=== PATIENT | male | born 1955 | race Caucasian/White ===

== ENCOUNTER 2016-08-28 14:34 | Inpatient (IN) | payer OTHER ==
[~2016-08-28] VITALS: Ht 190.5 cm; Wt 121.3 kg
[2016-08-28] MEDS ORDERED: SODIUM CHLORIDE 0.9% 1000ML 1,000 ML IV SCH (14:39)
--- NOTE | 2016-08-28 14:39 | EMERGENCY ROOM VISIT NOTE ---
History Report prepared by Fernie: Emma Mendoza Under the Supervision of: Dr. Feliz Patrick D.O. First contact with patient: 14:34 Stated Complaint: STROKE SYMPTOMS History of Present Illness The patient is a 60 year old male who presents to the Emergency Room with complaints of constant stroke like symptoms beginning just prior to arrival. The patient fell out of his truck today and has injuries from the fall. He felt lightheaded at the time of the fall. He notes back pain, right hip pain and right arm pain. The patient has lacerations to the forehead and right arm. When EMS arrived he was at baseline. The patient had a stroke in 2007 and since has experienced right sided weakness and right facial droop. After EMS was with the patient caring for his injuries, he began to experience confusion and trouble understanding what EMS was saying to him. He did have 2 alcoholic beverages today. Source of History: patient Onset: just [employer] Position: other (global) Quality: other (stroke symptoms) Timing: constant Associated Symptoms: + back pain Note: The patient is experiencing right arm pain and confusion. Review of Systems See HPI for pertinent positives & negatives. A total of 10 systems reviewed and were otherwise negative. 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 (17) Seizure disorder (18) Spinal stenosis, lumbar (19) Stroke Surgical Problems: (1) History of lumbar surgery (2) S/P cholecystectomy (3) S/P hernia repair (4) S/P IVC filter (5) S/P patent foramen ovale closure Social History Alcohol Use: occasionally Drug Use: none Marital Status: Housing Status: lives with family Current/Historical Medications Scheduled Citalopram (Citalopram Hydrobromide), 30 MG PO DAILY Clonazepam (Klonopin), 0.5 MG PO HS Clopidogrel (Plavix), 75 MG PO DAILY Cyanocobalamin (Vitamin B-12), 1,000 MCG PO DAILY Divalproex Sodium (Depakote), 500 MG PO BID Levothyroxine Sodium (Levothyroxine Sodium), 25 MCG PO QAM Simvastatin (Zocor), 10 MG PO HS Thiamine Hcl (Vitamin B-1), 100 MG PO DAILY Trazodone Hcl (Trazodone), 100 MG PO HS Scheduled PRN Hydrocodone-Acetaminophen (Lortab 5-325 mg), 1 TAB PO Q6 PRN for Pain Allergies Coded Allergies: BEE STING (Unverified Allergy, Unknown, UNKNOWN, 08/28/16) Lisinopril (Unverified Allergy, Unknown, UNKNOWN, 08/28/16) Morphine (Unverified Allergy, Unknown, SHORTNESS OF BREATH, 08/28/16) Nortriptyline (Unverified Allergy, Unknown, UNKNOWN, 08/28/16) Physical Exam Vital Signs Date Time Temp Pulse Resp B/P Pulse Ox O2 Delivery O2 Flow Rate FiO2 08/28/16 17:32 68 16 145/78 97 Room Air 08/28/16 17:29 71 16 08/28/16 17:17 140/72 08/28/16 17:15 70 16 140/72 97 Room Air 08/28/16 16:01 126/73 08/28/16 16:00 72 16 126/73 97 08/28/16 15:59 71 19 94 08/28/16 15:59 92 Nasal Cannula 3.0 08/28/16 15:50 72 17 138/79 96 08/28/16 15:49 138/79 08/28/16 15:24 74 23 95 08/28/16 15:22 96 Room Air 08/28/16 15:19 76 14 96 08/28/16 15:18 77 08/28/16 15:11 174/98 08/28/16 14:36 83 20 180/94 98 Room Air Physical Exam GENERAL: Patient is awake, alert, slow to answer questions. Patient appears to be uncomfortable and in pain. EYES: The conjunctivae are clear. The pupils are round and reactive. EARS, NOSE, MOUTH AND THROAT: The nose is without any evidence of any deformity. Mucous membranes are moist tongue is midline NECK: The neck is nontender and supple. RESPIRATORY: Normal respiratory effort is noted there is no evidence of wheezing rhonchi or rales CARDIOVASCULAR: Regular rate and rhythm noted there no murmurs rubs or gallops normal S1 normal S2 GASTROINTESTINAL: The abdomen is soft. Bowel sounds are present in all quadrants. Abdomen is nontender BACK: Abrasion to left lower back. Pain with palpation over lumbar spine. MUSCULOSKELETAL/EXTREMITIES: Shortening of right lower extremity. Pain with range of motion of right hip. No deformity noted. SKIN: Abrasion to right forearm and forehead, no active bleeding. Pitting edema bilaterally. NEUROLOGIC: Patient is awake alert and oriented to person, place and situation. 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 Unable to lift right leg off bed. Medical Decision & Procedures ER Provider Diagnostic Interpretation: Radiology results as stated below per my review and radiologist interpretation: RIGHT SHOULDER 2 VIEWS CLINICAL HISTORY: Fall with right shoulder pain. FINDINGS: 2 views of the right shoulder are obtained. No prior studies are available for comparison at the time of dictation. The examination is degraded by suboptimal positioning. The skeletal structures are osteopenic. No fracture or dislocation is seen. The glenohumeral articulation appears maintained. Mild productive change is noted at the acromioclavicular articulation. The overlying soft tissues are within normal limits. Imaged right upper lobe lung parenchyma is clear. IMPRESSION: No fracture or dislocation is seen. Electronically signed by: Timothy Onofre M.D. 08/28/2016 4:03 PM Dictated Date/Time: 08/28/2016 3:[address] DOSE: 724.80 mGycm HISTORY: Trauma fall TECHNIQUE: Multiaxial CT images of the lumbar spine were performed and reformatted in the sagittal and coronal plane without the use of contrast. COMPARISON: None. FINDINGS: Findings consistent with laminectomy and fusion at the L4-L5 and S1 levels. Vertebral body stature is normal. No evidence for an acute compression deformity. Transaxial images show the posterior arch to be intact at all levels. IMPRESSION: Postoperative changes of the low lumbar spine. No acute process. Electronically signed by: Balaji Thomas M.D. 08/28/2016 3:13 PM Dictated Date/Time: 08/28/2016 3:10 PM RIGHT PELVIS/UNILATERAL HIP 2-3VIEWS CLINICAL HISTORY: fall Right trauma. Pain. COMPARISON: None. DISCUSSION: Moderate degenerative change of both hips. Postoperative changes low lumbar spine. No evidence for acute bony abnormality. No evidence for acetabular protrusion. There is no evidence for soft tissue swelling. IMPRESSION: No acute process. Electronically signed by: Balaji Thomas M.D. 08/28/2016 3:56 PM Dictated Date/Time: 08/28/2016 3:[address] SCAN OF THE BRAIN WITHOUT IV CONTRAST CLINICAL HISTORY: Fall. Stroke like symptoms. COMPARISON STUDY: No priors. TECHNIQUE: Unenhanced axial CT scan of the brain is performed from the vertex to the skull base. CT DOSE: 729.78 mGycm FINDINGS: Brain parenchyma: There is left MCA territory encephalomalacia consistent with a remote infarct. There is associated ex vacuo dilatation of the lateral ventricle. Wallerian degeneration is noted within the left aspect of the lizeth. There are age-related involutional changes noting mild subcortical and periventricular microangiopathic change. There is no hemorrhage, mass effect, or evidence of acute territorial ischemia by CT criteria. Black-white matter is preserved. No extra-axial fluid collection is seen. Ventricles, sulci, cisterns: Prominent secondary to involutional change. Intracranial vasculature: There is atherosclerotic calcification of the cavernous carotid arteries. Calvarium: There is no depressed calvarial fracture. Sinuses and mastoids: The visualized paranasal sinuses are clear. The mastoid air cells are well pneumatized. Orbits: The bony orbits are grossly intact. IMPRESSION: There is no hemorrhage, mass effect, or evidence of acute territorial ischemia by CT criteria noting evidence of remote left MCA territory infarct. Electronically signed by: Timothy Onofre M.D. 08/28/2016 3:11 PM Dictated Date/Time: 08/28/2016 3:08 PM CHEST ONE VIEW PORTABLE CLINICAL HISTORY: Stroke mental status change COMPARISON STUDY: No previous studies for comparison. FINDINGS: The bones soft tissues and hemidiaphragms are normal. The cardiomediastinal silhouette is normal. The lungs are clear. The pulmonary vasculature is normal. IMPRESSION: Negative chest. Electronically signed by: Balaji Thomas M.D. 08/28/2016 3:47 PM Dictated Date/Time: 08/28/2016 3:[address] SCAN OF THE CERVICAL SPINE CLINICAL HISTORY: Fall. Neck pain. COMPARISON STUDY: No priors. TECHNIQUE: CT scan of the cervical spine is performed from the skull base to the upper thoracic spine. Images are reviewed in the axial, sagittal, and coronal planes. IV contrast was not administered for this examination. CT DOSE: 501.88 mGycm FINDINGS: Skeletal structures: The skeletal structures are well mineralized. There is no evidence of fracture or subluxation involving the cervical spine. Vertebral body height and alignment are maintained. There is straightening of the cervical lordosis. The odontoid process and lateral masses are intact. The atlantoaxial articulation is preserved. The spinous processes appear intact. Small anterior osteophytes are seen from C5-C7. Intervertebral discs: There is moderate degenerative disc space narrowing at C5-C6. The remaining disc spaces are well maintained. Central canal: A posterior disc osteophyte complex at C5-C6 likely contributes to acquired compromise of the central canal. Soft tissues: The prevertebral and paraspinous soft tissues are within normal limits. Calvarium: The visualized calvarium at the skull base appears intact. Brain parenchyma: Partially visualized brain parenchyma the skull base is within normal limits. Sinuses and mastoids: Trace mucosal thickening/fluid is seen within the maxillary antra. The mastoid air cells are well pneumatized. Lung apices: Clear as visualized. IMPRESSION: There is no evidence of fracture or subluxation involving the cervical spine. Electronically signed by: Timothy Onofre M.D. 08/28/2016 3:19 PM Dictated Date/Time: 08/28/2016 3:11 PM RIGHT HUMERUS MIN 2 VIEWS ROUTINE CLINICAL HISTORY: fall Right trauma. Pain. COMPARISON: None. DISCUSSION: Degenerative change right shoulder and right elbow. No well-defined acute bony abnormality of the humerus. Cortical margins are intact. There is no evidence for soft tissue swelling. IMPRESSION: Degenerative change. No acute bony abnormality. Electronically signed by: Balaji Thomas M.D. 08/28/2016 4:54 PM Dictated Date/Time: 08/28/2016 4:54 PM RIGHT FEMUR 2 VIEWS ROUTINE CLINICAL HISTORY: fall Right COMPARISON: None. DISCUSSION: Moderate degenerative change right hip. No evidence for acetabular protrusion. No acute bony abnormality. There is no evidence for soft tissue swelling. IMPRESSION: Degenerative change. No acute bony abnormality. Electronically signed by: Balaji Thomas M.D. 08/28/2016 4:53 PM Dictated Date/Time: 08/28/2016 4:50 PM RIGHT FOREARM 2 VIEWS ROUTINE CLINICAL HISTORY: fall Right trauma. Pain. COMPARISON: None. DISCUSSION: Intermittent subluxation of the radial ulnar articulation. The elbow show degenerative change. No additional acute bony abnormalities identified. There is no evidence for soft tissue swelling. IMPRESSION: Intermittent r positional subluxation of the radial ulnar articulation. Electronically signed by: Balaji Thomas M.D. 08/28/2016 4:49 PM Dictated Date/Time: 08/28/2016 4:44 PM Laboratory Results Test 08/28/16 14:40 08/28/16 14:45 08/28/16 14:51 08/28/16 15:14 Bedside Prothrombin Time INR 1.1 (0.9-1.1) Bedside Glucose 106 mg/dl (70-99) Red Blood Cell Morphology Unremarkable Estimated Average Glucose 94 mg/dl Hemoglobin A1c 4.9 % (4.5-5.6) Total Creatine Kinase 113 U/L (39-308) Creatine Kinase MB 1.2 ng/ml (0.5-3.6) Creatine Kinase MB Ratio 1.1 (0-3.0) Troponin I < 0.015 ng/ml (0-0.045) Bedside Hemoglobin 16.3 g/dl (14.0-18.0) Bedside Hematocrit 48 % (42-52) Bedside Sodium 138 mEq/L (135-144) Bedside Potassium 4.5 mEq/L (3.3-5.0) Bedside Chloride 97 mEq/L (101-112) Bedside Total CO2 26 mEq/l (24-31) Bedside Blood Urea Nitrogen 5 mg/dl (7-18) Bedside Creatinine 0.9 mg/dl (0.6-1.3) Bedside Glucose (other) 102 mg/dl (70-99) Bedside Ionized Calcium (Herb) 1.11 mmol/l (1.12-1.32) Urine Color YELLOW Urine Appearance CLEAR (CLEAR) Urine pH 6.5 (4.5-7.5) Urine Specific [place] 1.008 (1.000-1.030) Urine Protein NEG (NEG) Urine Glucose (UA) NEG (NEG) Urine Ketones NEG (NEG) Urine Occult Blood TRACE (NEG) Urine Nitrite NEG (NEG) Urine Bilirubin NEG (NEG) Urine Urobilinogen NEG (NEG) Urine Leukocyte Esterase NEG (NEG) Urine WBC (Auto) 0 /hpf (0-5) Urine RBC (Auto) 0-4 /hpf (0-4) Urine Hyaline Casts (Auto) 1-5 /lpf (0-5) Urine Epithelial Cells (Auto) 0-5 /lpf (0-5) Urine Bacteria (Auto) NEG (NEG) Urine Opiates Screen NEG (NEG) Urine Methadone, Qualitative NEG (NEG) Urine Barbiturates NEG (NEG) Urine Phencyclidine (PCP) Level NEG (NEG) Ur Amphetamine/Methamphetamine NEG (NEG) MDMA (Ecstasy) Screen NEG (NEG) Urine Benzodiazepines Screen NEG (NEG) Urine Cocaine Metabolite NEG (NEG) Urine Marijuana (THC) NEG (NEG) Test 08/28/16 15:15 Prothrombin Time 10.8 SECONDS (9.0-12.0) Prothromb Time International Ratio 1.0 (0.9-1.1) Activated Partial Thromboplast Time 26.1 SECONDS (21.0-31.0) Partial Thromboplastin Ratio 1.0 Ethyl Alcohol mg/dL < 3.0 mg/dl (0-3) Laboratory results per my review. Medications Administered Medications (Trade) Dose Ordered Sig/Liss Route Start Time Stop Time Status Last Admin Dose Admin Sodium Chloride (Nss 1000ml) 1,000 ml @ 50 mls/hr Q20H IV 08/28/16 14:39 08/28/16 20:57 DC 08/28/16 15:27 50 MLS/HR Ondansetron HCl (Zofran Inj) 4 mg NOW STAT IV 08/28/16 15:13 08/28/16 15:14 DC 08/28/16 15:28 4 MG Fentanyl Citrate 100 mcg 100 mcg Q15M PRN IV 08/28/16 15:15 08/28/16 20:57 DC 08/28/16 19:35 100 MCG Sodium Chloride (Nss 1000ml) 1,000 ml @ 100 mls/hr Q10H IV 08/28/16 18:26 09/27/16 18:25 08/29/16 04:20 100 MLS/HR ECG Indication: other (stroke symptoms) Rate (beats per minute): 79 Rhythm: normal sinus Findings: nonspecific-ST abn (none), no ectopy Comparison ECG Date: no prior available ED Course 1434: The patient was evaluated in room B1. A complete history and physical examination were performed. 1439: Sodium Chloride 1,000 ml @ 50 mls/hr IV. 1511: I checked on the patient. He is still in pain and is requesting pain medication. 1513: Zofran Inj 4 mg IV, Fentanyl Inj 100 mcg IV. 1550: F 15. 1555: I spoke with the patient's [id number]. He states that the patient is now at baseline. 1625: [id number] once again states that the patient is at his baseline. 1630: I discussed the patient's case with Dr. Angelo Cee. The patient will be evaluated for further management. 1645: Upon reevaluation, the patient is hemodynamically stable. I discussed results and treatment plan with him. He verbalizes agreement and understanding. I spoke with Dr. Stephens of the [facility]. The patient will be evaluated for further management and care. Medical Decision Differential diagnosis: Etiologies such as fracture, dislocation, intra-abdominal, pneumothorax, intrathoracic , intracranial, neurologic, as well as other traumatic pathologies were entertained. Nursing notes reviewed. Additional history is obtained from the patient's family member. Additional history is obtained from prehospital personnel. The patient is a 60-year-old male who presented to the emergency department for an evaluation after a fall. The patient was with his [id number] when he fell from his [id number]'s vehicle. The patient was transported to our facility via [employer]. We were called by the [employer] company because the patient's mental status started to decrease and he started to have symptoms of what was felt to be a stroke. The patient does have a a history of an MCA infarct which left him with right upper and right lower extremity weakness in the past. The patient was put directly to room B 1. Most of his complaints appear to be consistent with the fall including right shoulder right hip and low back pain. On physical exam the patient had right-sided weakness as well as a slight right facial droop. The patient was reevaluated multiple times. The patient's family member feels that he is at his normal mental status and baseline neurologic exam at this time. I do not feel the patient is a candidate for TPA because of the rapidly improving symptoms as well as a history of recent trauma. The patient was treated with IV fluids IV pain medicine and IV antiemetics in the emergency department. He continued to have significant pain in the shoulder although radiographic studies did not show any definite bony injury. I discussed this case with the on-call [facility] hospitalist group. They've agreed to evaluate the patient in the emergency department for further management and disposition. Consults Time Called: 1628 Consulting Physician: Dr. Angelo Cee Returned Call: 1630 I discussed the patient's case with Dr. Angelo Cee. The patient will be evaluated for further management. Impression Primary Impression: TIA (transient ischemic attack) Additional Impressions: Fall Altered mental status Shoulder contusion Contusion, hip Lumbar contusion Scribe Attestation The scribe's documentation has been prepared under my direction and personally reviewed by me in its entirety. I confirm that the note above accurately reflects all work, treatment, procedures, and medical decision making performed by me. Departure Information Dispostion Being Evaluated By Hospitalist Problem Qualifiers Primary Impression: TIA (transient ischemic attack) Transient cerebral ischemia type: unspecified Qualified Codes: G45.9 - Transient cerebral ischemic attack, unspecified Additional Impressions: Fall Encounter type: initial encounter Qualified Codes: W19.XXXA - Unspecified fall, initial encounter Altered mental status Altered mental status type: unspecified Qualified Codes: R41.82 - Altered mental status, unspecified Shoulder contusion Encounter type: initial encounter Laterality: right Qualified Codes: S40.011A - Contusion of right shoulder, initial encounter Contusion, hip Encounter type: initial encounter Laterality: right Qualified Codes: S70.01XA - Contusion of right hip, initial encounter Lumbar contusion Encounter type: initial encounter Qualified Codes: S30.0XXA - Contusion of lower back and pelvis, initial encounter
[2016-08-28 15:05] LABS: ISTAT CREATININE 0.9 mg/dl (0.6-1.3); ISTAT HEMOGLOBIN 16.3 g/dl (14.0-18.0); ISTAT IONIZED CALCIUM 1.11 mmol/l (1.12-1.32)
--- NOTE | 2016-08-28 15:12 | DIAGNOSTIC IMAGING REPORT ---
CT SCAN OF THE BRAIN WITHOUT IV CONTRAST CLINICAL HISTORY: Fall. Stroke like symptoms. COMPARISON STUDY: No priors. TECHNIQUE: Unenhanced axial CT scan of the brain is performed from the vertex to the skull base. CT DOSE: 729.78 mGycm FINDINGS: Brain parenchyma: There is left MCA territory encephalomalacia consistent with a remote infarct. There is associated ex vacuo dilatation of the lateral ventricle. Wallerian degeneration is noted within the left aspect of the lizeth. There are age-related involutional changes noting mild subcortical and periventricular microangiopathic change. There is no hemorrhage, mass effect, or evidence of acute territorial ischemia by CT criteria. Black-white matter is preserved. No extra-axial fluid collection is seen. Ventricles, sulci, cisterns: Prominent secondary to involutional change. Intracranial vasculature: There is atherosclerotic calcification of the cavernous carotid arteries. Calvarium: There is no depressed calvarial fracture. Sinuses and mastoids: The visualized paranasal sinuses are clear. The mastoid air cells are well pneumatized. Orbits: The bony orbits are grossly intact. IMPRESSION: There is no hemorrhage, mass effect, or evidence of acute territorial ischemia by CT criteria noting evidence of remote left MCA territory infarct. Electronically signed by: Timothy Onofre M.D. 08/28/2016 3:11 PM Dictated Date/Time: 08/28/2016 3:08 PM
[2016-08-28] MEDS ORDERED: ONDANSETRON INJ 2 MG/ML 2 ML VIAL IV STA (15:13)
--- NOTE | 2016-08-28 15:15 | DIAGNOSTIC IMAGING REPORT ---
LUMBAR SPINE CT CT DOSE: 724.80 mGycm HISTORY: Trauma fall TECHNIQUE: Multiaxial CT images of the lumbar spine were performed and reformatted in the sagittal and coronal plane without the use of contrast. COMPARISON: None. FINDINGS: Findings consistent with laminectomy and fusion at the L4-L5 and S1 levels. Vertebral body stature is normal. No evidence for an acute compression deformity. Transaxial images show the posterior arch to be intact at all levels. IMPRESSION: Postoperative changes of the low lumbar spine. No acute process. Electronically signed by: Balaji Thomas M.D. 08/28/2016 3:13 PM Dictated Date/Time: 08/28/2016 3:10 PM
--- NOTE | 2016-08-28 15:20 | DIAGNOSTIC IMAGING REPORT ---
CT SCAN OF THE CERVICAL SPINE CLINICAL HISTORY: Fall. Neck pain. COMPARISON STUDY: No priors. TECHNIQUE: CT scan of the cervical spine is performed from the skull base to the upper thoracic spine. Images are reviewed in the axial, sagittal, and coronal planes. IV contrast was not administered for this examination. CT DOSE: 501.88 mGycm FINDINGS: Skeletal structures: The skeletal structures are well mineralized. There is no evidence of fracture or subluxation involving the cervical spine. Vertebral body height and alignment are maintained. There is straightening of the cervical lordosis. The odontoid process and lateral masses are intact. The atlantoaxial articulation is preserved. The spinous processes appear intact. Small anterior osteophytes are seen from C5-C7. Intervertebral discs: There is moderate degenerative disc space narrowing at C5-C6. The remaining disc spaces are well maintained. Central canal: A posterior disc osteophyte complex at C5-C6 likely contributes to acquired compromise of the central canal. Soft tissues: The prevertebral and paraspinous soft tissues are within normal limits. Calvarium: The visualized calvarium at the skull base appears intact. Brain parenchyma: Partially visualized brain parenchyma the skull base is within normal limits. Sinuses and mastoids: Trace mucosal thickening/fluid is seen within the maxillary antra. The mastoid air cells are well pneumatized. Lung apices: Clear as visualized. IMPRESSION: There is no evidence of fracture or subluxation involving the cervical spine. Electronically signed by: Timothy Onofre M.D. 08/28/2016 3:19 PM Dictated Date/Time: 08/28/2016 3:11 PM
[2016-08-28 15:26] LABS: BLOOD UREA NITROGEN 5 mg/dl (7-18); BUN/CREATININE RATIO 5.4 (10-20); CALCIUM 8.3 mg/dl (8.5-10.1); CARBON DIOXIDE 30 mmol/L (21-32); CHLORIDE 104 mmol/L (98-107); GLUCOSE 99 mg/dl (70-99); POTASSIUM 4.3 mmol/L (3.5-5.1); SODIUM 139 mmol/L (136-145)
[2016-08-28] MEDS: FENTANYL CITRATE INJ 50 MCG/1 ML 2 ML VIAL IV PRN ×3 (15:27→19:35)
[2016-08-28 15:31] LABS: CKMB/CK RATIO 1.1 (0-3.0)
[2016-08-28 15:36] LABS: URINE APPEARANCE CLEAR (CLEAR); URINE BILIRUBIN NEG (NEG); URINE COLOR YELLOW; URINE EPITHELIAL CELL AUTO 0-5 /lpf (0-5); URINE NITRITE NEG (NEG); URINE PH 6.5 (4.5-7.5); URINE SPECIFIC GRAVITY 1.008 (1.000-1.030); UROBILINOGEN NEG (NEG); ZZUR CULT IF INDIC CLEAN CATCH NO
[2016-08-28 15:38] LABS: MANUAL MICROSCOPIC REQUIRED? NO; REVIEW REQ? NO
[2016-08-28 15:43] LABS: HEMATOCRIT 47.5 % (42-52); MEAN CORPUSCULAR HEMOGLOBIN 34.3 pg (25-34); MEAN CORPUSCULAR HGB CONC 35.8 g/dl (32-36); RED BLOOD COUNT 4.95 M/uL (4.7-6.1); WHITE BLOOD COUNT 8.16 K/uL (4.8-10.8)
--- NOTE | 2016-08-28 15:49 | DIAGNOSTIC IMAGING REPORT ---
CHEST ONE VIEW PORTABLE CLINICAL HISTORY: Stroke mental status change COMPARISON STUDY: No previous studies for comparison. FINDINGS: The bones soft tissues and hemidiaphragms are normal. The cardiomediastinal silhouette is normal. The lungs are clear. The pulmonary vasculature is normal. IMPRESSION: Negative chest. Electronically signed by: Balaji Thomas M.D. 08/28/2016 3:47 PM Dictated Date/Time: 08/28/2016 3:47 PM
[2016-08-28 15:50] LABS: PROTHROMBIN TIME (PATIENT) 10.8 SECONDS (9.0-12.0)
--- NOTE | 2016-08-28 15:57 | DIAGNOSTIC IMAGING REPORT ---
RIGHT PELVIS/UNILATERAL HIP 2-3VIEWS CLINICAL HISTORY: fall Right trauma. Pain. COMPARISON: None. DISCUSSION: Moderate degenerative change of both hips. Postoperative changes low lumbar spine. No evidence for acute bony abnormality. No evidence for acetabular protrusion. There is no evidence for soft tissue swelling. IMPRESSION: No acute process. Electronically signed by: Balaji Thomas M.D. 08/28/2016 3:56 PM Dictated Date/Time: 08/28/2016 3:55 PM
[2016-08-28 16:00] LABS: BENZODIAZEPINE, URINE NEG (NEG); COCAINE,URINE NEG (NEG); PHENCYCLIDINE, URINE NEG (NEG)
--- NOTE | 2016-08-28 16:04 | DIAGNOSTIC IMAGING REPORT ---
RIGHT SHOULDER 2 VIEWS CLINICAL HISTORY: Fall with right shoulder pain. FINDINGS: 2 views of the right shoulder are obtained. No prior studies are available for comparison at the time of dictation. The examination is degraded by suboptimal positioning. The skeletal structures are osteopenic. No fracture or dislocation is seen. The glenohumeral articulation appears maintained. Mild productive change is noted at the acromioclavicular articulation. The overlying soft tissues are within normal limits. Imaged right upper lobe lung parenchyma is clear. IMPRESSION: No fracture or dislocation is seen. Electronically signed by: Timothy Onofre M.D. 08/28/2016 4:03 PM Dictated Date/Time: 08/28/2016 3:57 PM
[2016-08-28 16:07] LABS: BASO % 0.4 %; BASO ABS # 0.03 K/uL (0-0.2); COMPLETE YES; EOS % 2.5 %; IG% 0.7 %; LYMPH ABS # 2.18 K/uL (1.2-3.4); MEAN PLATELET VOLUME 10.5 fL (7.4-10.4); MONO % 12.4 %; PLATELET COUNT 175 K/uL (130-400)
--- NOTE | 2016-08-28 16:51 | DIAGNOSTIC IMAGING REPORT ---
RIGHT FOREARM 2 VIEWS ROUTINE CLINICAL HISTORY: fall Right trauma. Pain. COMPARISON: None. DISCUSSION: Intermittent subluxation of the radial ulnar articulation. The elbow show degenerative change. No additional acute bony abnormalities identified. There is no evidence for soft tissue swelling. IMPRESSION: Intermittent r positional subluxation of the radial ulnar articulation. Electronically signed by: Balaji Thomas M.D. 08/28/2016 4:49 PM Dictated Date/Time: 08/28/2016 4:44 PM
--- NOTE | 2016-08-28 16:55 | DIAGNOSTIC IMAGING REPORT ---
RIGHT FEMUR 2 VIEWS ROUTINE CLINICAL HISTORY: fall Right COMPARISON: None. DISCUSSION: Moderate degenerative change right hip. No evidence for acetabular protrusion. No acute bony abnormality. There is no evidence for soft tissue swelling. IMPRESSION: Degenerative change. No acute bony abnormality. Electronically signed by: Balaji Thomas M.D. 08/28/2016 4:53 PM Dictated Date/Time: 08/28/2016 4:50 PM
--- NOTE | 2016-08-28 16:56 | DIAGNOSTIC IMAGING REPORT ---
RIGHT HUMERUS MIN 2 VIEWS ROUTINE CLINICAL HISTORY: fall Right trauma. Pain. COMPARISON: None. DISCUSSION: Degenerative change right shoulder and right elbow. No well-defined acute bony abnormality of the humerus. Cortical margins are intact. There is no evidence for soft tissue swelling. IMPRESSION: Degenerative change. No acute bony abnormality. Electronically signed by: Balaji Thomas M.D. 08/28/2016 4:54 PM Dictated Date/Time: 08/28/2016 4:54 PM
[2016-08-28] MEDS ORDERED: ACETAMINOPHEN 325 MG TAB PO PRN (18:30)
[2016-08-28] MEDS ORDERED: ONDANSETRON INJ 2 MG/ML 2 ML VIAL IV PRN (18:30)
[2016-08-28] MEDS ORDERED: PHARMACIST DISCHARGE MED REC CONSULT PRN (18:30)
[2016-08-28] MEDS ORDERED: LORAZEPAM 1 MG TAB PO PRN (18:45)
[2016-08-28] MEDS ORDERED: THIAMINE HCL 100 MG TAB PO SCH (18:45)
[2016-08-28] MEDS ORDERED: LORAZEPAM 0.5 MG TAB PO SCH (19:00)
[2016-08-28] MEDS ORDERED: HYDR-4330 PO (19:01)
--- NOTE | 2016-08-28 20:33 | DIAGNOSTIC IMAGING REPORT ---
PELVIS AND RIGHT HIP CT CT DOSE: 1395.78 mGy.cm HISTORY: R hip pain rule out pelvic fx TECHNIQUE: Multiaxial CT images of the pelvis and right hip were performed and reformatted in the sagittal and coronal plane without the use of contrast. COMPARISON: Pelvis and right hip 08/28/2016. FINDINGS: Mild osteoarthritis within the bilateral hips. Fusion hardware seen within the lower lumbar spine and S1 levels. No fracture or dislocation within the pelvis or hips. The sacrum appears intact. Tiny fat-containing bilateral inguinal hernias. The bladder is unremarkable. No pelvic hematoma identified. IMPRESSION: No fracture or dislocation within the pelvis or hips. Electronically signed by: Volodymyr Jeter M.D. 08/28/2016 8:32 PM Dictated Date/Time: 08/28/2016 8:25 PM
[2016-08-28 20:40] VITALS: O2SAT 94
[2016-08-28 20:43] VITALS: BP 127/78; PULSE 66; TEMP 36.9; O2SAT 94; Ht 190.5 cm; Wt 121.3 kg
[2016-08-28] MEDS ORDERED: SIMVASTATIN 10 MG TAB PO SCH (21:00)
[2016-08-28] MEDS ORDERED: TRAZODONE HCL 100 MG TAB PO SCH (21:00)
[2016-08-28] MEDS ORDERED: ENOXAPARIN 40 MG/0.4 ML SYR SC SCH (21:00)
[2016-08-28] MEDS ORDERED: CLONAZEPAM 0.5 MG TAB PO SCH (21:00)
[2016-08-28] MEDS: HYDROCODONE/ACETAMOPHEN 5/325MG TAB PO PRN (21:01)
[2016-08-28] MEDS: SODIUM CHLORIDE 0.9% 1000ML 1,000 ML IV SCH (21:02)
--- NOTE | 2016-08-28 21:27 | History and Physical ---
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 Patient f/w [facility] neurolog[facility] Dr. Thakkar. Pt reports chronic right arm and leg weakness and chronic right facial droop. Patient states this morning his R side weakness and balance difficulty were at baseline and he had been ambulating with his cane. Then today around 2 pm after having lunch and 2 beers he fell backwards due to "losing his balance" trying to get into his brother in law's truck. He denies dizziness, LOC, head trauma. Patient hit is right shoulder, right arm, right hip , and left hand and has abrasions on both upper extremities. Currently he reports pain in right distal forearm rated 6/10 and pain in the right hip which is less severe, but worsens with movement. 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 He reports chronic numbness dorsum of right foot but no acute numbness. Pt notes FERRERA ambulating around the house x 1 week. Does not climb more than 2 stairs. Does not lie flat due to back problems. He denies vision change, speech or swallowing difficulty, recent seizure, fever, chills, URI symptoms, cough, SOB at rest, chest pain, palpitations, abdominal pain, N/V/D, dysuria, frequency, calf pain, edema, weight gain. No recent brain or carotid imaging. Last echo was stress test which was negative approx 1 year ago at [facility]. Denies hx of arrhythmia. Past Medical/Surgical History Medical Problems: (1) Anxiety Status: Chronic (2) Benign neoplasm of colon Status: Chronic (3) Chronic back pain Status: Chronic (4) Conversion disorder Status: Chronic (5) Depression Status: Chronic (6) DVT (deep venous thrombosis) Permanent Comment: RLE 2007- IVC filter placed, hypercoag workup done; new DVT RLE 01/2014 non provoked; Coumadin stopped by [facility] neuro 09/2015 Status: Chronic (7) Enlarged thoracic aorta Permanent Comment: 4.[address] chest 10/2014 at [facility] Status: Chronic (8) Fatty liver Status: Chronic (9) GERD (gastroesophageal reflux disease) Status: Chronic (10) H/O ischemic left MCA stroke Permanent Comment: 06/2007 with residual right hemiparesis Status: Chronic (11) HTN (hypertension) Status: Chronic (12) Hypothyroidism Status: Chronic (13) Impaired fasting glucose Status: Chronic (14) Migraine Status: Chronic (15) PFO (patent foramen ovale) Status: Chronic (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 (17) Seizure disorder Permanent Comment: neg prolonged EEG/ video monitoring 11/2013 at [facility] Status: Chronic (18) Spinal stenosis, lumbar Status: Chronic Surgical Problems: (1) History of lumbar surgery Status: Chronic (2) S/P cholecystectomy Status: Chronic (3) S/P hernia repair Status: Chronic (4) S/P IVC filter Status: Chronic (5) S/P patent foramen ovale closure Permanent Comment: 01/2008 [facility] Status: Chronic Family History FH: colon cancer MOTHER Hypertension FATHER Social History Smoking Status: Never Smoker Alcohol Use: heavy (6-7 beers per day since October 2015. 2 beers today. ) Drug Use: none Marital Status: Housing status: lives with significant other Immunizations History of Tetanus Vaccine?: Yes (TDAP 12/25/2013) Allergies Coded Allergies: BEE STING (Unverified Allergy, Unknown, UNKNOWN, 08/28/16) Lisinopril (Unverified Allergy, Unknown, UNKNOWN, 08/28/16) Morphine (Unverified Allergy, Unknown, SHORTNESS OF BREATH, 08/28/16) Nortriptyline (Unverified Allergy, Unknown, UNKNOWN, 08/28/16) Home Medications Scheduled Citalopram (Citalopram Hydrobromide), 30 MG PO DAILY Clonazepam (Klonopin), 0.5 MG PO HS Clopidogrel (Plavix), 75 MG PO DAILY Cyanocobalamin (Vitamin B-12), 1,000 MCG PO DAILY Divalproex Sodium (Depakote), 500 MG PO BID Levothyroxine Sodium (Levothyroxine Sodium), 25 MCG PO QAM Simvastatin (Zocor), 10 MG PO HS Thiamine Hcl (Vitamin B-1), 100 MG PO DAILY Trazodone Hcl (Trazodone), 100 MG PO HS Scheduled PRN Hydrocodone-Acetaminophen (Lortab 5-325 mg), 1 TAB PO Q6 PRN for Pain Review of Systems Constitutional: No chills, No fever Eyes: No worsening of vision ENT: No nasal symptoms, No trouble swallowing Respiratory: + dyspnea on exertion, No cough, No dyspnea at rest Cardiovascular: No chest pain, No edema, No palpitations Abdomen: + nausea, + pain, No diarrhea Musculoskeletal: No calf pain Genitourinary - Male: No dysuria, No urinary frequency Neurologic: + balance problems (chronic requiring cane. ), + numbness/tingling (chronic dorsum right foot. no acute numbness/ tingling. ), + weakness (see HPI) , No problem reported (no dizziness or syncope) Psychiatric: + problem reported (mood stable on current medcitions) Hematologic / Lymphatic: No abnormal bleeding/bruising Integumentary: + problem reported (abrasions bilateral upper extremities) Physical Exam Vital Signs Date Time Temp Pulse Resp B/P Pulse Ox O2 Delivery O2 Flow Rate FiO2 08/28/16 17:32 68 16 145/78 97 Room Air 08/28/16 17:29 71 16 08/28/16 17:17 140/72 08/28/16 17:15 70 16 140/72 97 Room Air 08/28/16 16:01 126/73 08/28/16 16:00 72 16 126/73 97 08/28/16 15:59 71 19 94 08/28/16 15:59 92 Nasal Cannula 3.0 08/28/16 15:50 72 17 138/79 96 08/28/16 15:49 138/79 08/28/16 15:24 74 23 95 08/28/16 15:22 96 Room Air 08/28/16 15:19 76 14 96 08/28/16 15:18 77 08/28/16 15:11 174/98 08/28/16 14:36 83 20 180/94 98 Room Air General Appearance: WD/WN, no apparent distress, + pertinent finding ( at bedside) Head: normocephalic, atraumatic Eyes: normal inspection, PERRL, EOMI ENT: hearing grossly normal, pharynx normal Neck: supple, trachea midline Respiratory/Chest: lungs clear, normal breath sounds, no respiratory distress, no accessory muscle use Cardiovascular: regular rate, rhythm, no murmur Abdomen/GI: normal bowel sounds, non tender, soft Extremities/Musculoskelatal: no calf tenderness, no pedal edema, + pertinent finding (R shoulder joint nontender to palpation, + R shoulder pain/ guarding with minimal ROM. right elbow nontender. + tenderness right distal radius and distal ulna areas. R wrist ROM limisted by pain. no swelling/ erthema. right hip pain with ROM. 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 remainder of RUE unable to test due to painful ROM. LUE strength 5/5. right hip motor exam limited by painful ROM. bilateral knee extension 5/5 and ankle flexion/ extension 5/5. toes downgoing bilaterally. finger to nose intact LUE. ) Skin: normal color, warm/dry, + pertinent finding (multiple abrasions right and left upper extremities) Diagnostics Laboratory Results Results Past 24 Hours Test 08/28/16 14:40 08/28/16 14:45 08/28/16 14:51 08/28/16 15:14 Range/Units Bedside Prothrombin Time INR 1.1 0.9-1.1 Bedside Glucose 106 70-99 mg/dl White Blood Count 8.16 4.8-10.8 K/uL Red Blood Count 4.95 4.7-6.1 M/uL Hemoglobin 17.0 14.0-18.0 g/dL Hematocrit 47.5 42-52 % Mean Corpuscular Volume 96.0 80-100 fL Mean Corpuscular Hemoglobin 34.3 25-34 pg Mean Corpuscular Hemoglobin Concent 35.8 32-36 g/dl Platelet Count 175 130-400 K/uL Mean Platelet Volume 10.5 7.4-10.4 fL Neutrophils (%) (Auto) 57.0 % Lymphocytes (%) (Auto) 27.0 % Monocytes (%) (Auto) 12.4 % Eosinophils (%) (Auto) 2.5 % Basophils (%) (Auto) 0.4 % Neutrophils # (Auto) 4.61 1.4-6.5 K/uL Lymphocytes # (Auto) 2.18 1.2-3.4 K/uL Monocytes # (Auto) 1.00 0.11-0.59 K/uL Eosinophils # (Auto) 0.20 0-0.5 K/uL Basophils # (Auto) 0.03 0-0.2 K/uL RDW Standard Deviation 41.9 36.4-46.3 fL RDW Coefficient of Variation 12.0 11.5-14.5 % Immature Granulocyte % (Auto) 0.7 % Immature Granulocyte # (Auto) 0.06 0.00-0.02 K/uL Red Blood Cell Morphology Unremarkable Sodium Level 139 136-145 mmol/L Potassium Level 4.3 3.5-5.1 mmol/L Chloride Level 104 98-107 mmol/L Carbon Dioxide Level 30 21-32 mmol/L Anion Gap 5.0 21.0 16-25 mmol/L Blood Urea Nitrogen 5 7-18 mg/dl Creatinine 1.00 0.60-1.40 mg/dl Est Creatinine Clear Calc Drug Dose 109.0 ml/min Estimated GFR () 95.7 Estimated GFR (Non- 82.6 BUN/Creatinine Ratio 5.4 10-20 Random Glucose 99 70-99 mg/dl Calcium Level 8.3 8.5-10.1 mg/dl Total Creatine Kinase 113 39-308 U/L Creatine Kinase MB 1.2 0.5-3.6 ng/ml Creatine Kinase MB Ratio 1.1 0-3.0 Troponin I < 0.015 0-0.045 ng/ml Bedside Hemoglobin 16.3 14.0-18.0 g/dl Bedside Hematocrit 48 42-52 % Bedside Sodium 138 135-144 mEq/L Bedside Potassium 4.5 3.3-5.0 mEq/L Bedside Chloride 97 101-112 mEq/L Bedside Total CO2 26 24-31 mEq/l Bedside Blood Urea Nitrogen 5 7-18 mg/dl Bedside Creatinine 0.9 0.6-1.3 mg/dl Bedside Glucose (other) 102 70-99 mg/dl Bedside Ionized Calcium (Herb) 1.11 1.12-1.32 mmol/l Urine Color YELLOW Urine Appearance CLEAR CLEAR Urine pH 6.5 4.5-7.5 Urine Specific [place] 1.008 1.000-1.030 Urine Protein NEG NEG Urine Glucose (UA) NEG NEG Urine Ketones NEG NEG Urine Occult Blood TRACE NEG Urine Nitrite NEG NEG Urine Bilirubin NEG NEG Urine Urobilinogen NEG NEG Urine Leukocyte Esterase NEG NEG Urine WBC (Auto) 0 0-5 /hpf Urine RBC (Auto) 0-4 0-4 /hpf Urine Hyaline Casts (Auto) 1-5 0-5 /lpf Urine Epithelial Cells (Auto) 0-5 0-5 /lpf Urine Bacteria (Auto) NEG NEG Urine Opiates Screen NEG NEG Urine Methadone, Qualitative NEG NEG Urine Barbiturates NEG NEG Urine Phencyclidine (PCP) Level NEG NEG Ur Amphetamine/Methamphetamine NEG NEG MDMA (Ecstasy) Screen NEG NEG Urine Benzodiazepines Screen NEG NEG Urine Cocaine Metabolite NEG NEG Urine Marijuana (THC) NEG NEG Test 08/28/16 15:15 Range/Units Prothrombin Time 10.8 9.0-12.0 SECONDS Prothromb Time International Ratio 1.0 0.9-1.1 Activated Partial Thromboplast Time 26.1 21.0-31.0 SECONDS Partial Thromboplastin Ratio 1.0 Ethyl Alcohol mg/dL < 3.0 0-3 mg/dl Diagnostic Radiology RIGHT SHOULDER 2 VIEWS CLINICAL HISTORY: Fall with right shoulder pain. FINDINGS: 2 views of the right shoulder are obtained. No prior studies are available for comparison at the time of dictation. The examination is degraded by suboptimal positioning. The skeletal structures are osteopenic. No fracture or dislocation is seen. The glenohumeral articulation appears maintained. Mild productive change is noted at the acromioclavicular articulation. The overlying soft tissues are within normal limits. Imaged right upper lobe lung parenchyma is clear. IMPRESSION: No fracture or dislocation is seen. LUMBAR SPINE CT CT DOSE: 724.80 mGycm HISTORY: Trauma fall TECHNIQUE: Multiaxial CT images of the lumbar spine were performed and reformatted in the sagittal and coronal plane without the use of contrast. COMPARISON: None. FINDINGS: Findings consistent with laminectomy and fusion at the L4-L5 and S1 levels. Vertebral body stature is normal. No evidence for an acute compression deformity. Transaxial images show the posterior arch to be intact at all levels. IMPRESSION: Postoperative changes of the low lumbar spine. No acute process. RIGHT PELVIS/UNILATERAL HIP 2-3VIEWS CLINICAL HISTORY: fall Right trauma. Pain. COMPARISON: None. DISCUSSION: Moderate degenerative change of both hips. Postoperative changes low lumbar spine. No evidence for acute bony abnormality. No evidence for acetabular protrusion. There is no evidence for soft tissue swelling. IMPRESSION: No acute process. CT SCAN OF THE BRAIN WITHOUT IV CONTRAST CLINICAL HISTORY: Fall. Stroke like symptoms. COMPARISON STUDY: No priors. TECHNIQUE: Unenhanced axial CT scan of the brain is performed from the vertex to the skull base. CT DOSE: 729.78 mGycm FINDINGS: Brain parenchyma: There is left MCA territory encephalomalacia consistent with a remote infarct. There is associated ex vacuo dilatation of the lateral ventricle. Wallerian degeneration is noted within the left aspect of the lizeth. There are age-related involutional changes noting mild subcortical and periventricular microangiopathic change. There is no hemorrhage, mass effect, or evidence of acute territorial ischemia by CT criteria. Black-white matter is preserved. No extra-axial fluid collection is seen. Ventricles, sulci, cisterns: Prominent secondary to involutional change. Intracranial vasculature: There is atherosclerotic calcification of the cavernous carotid arteries. Calvarium: There is no depressed calvarial fracture. Sinuses and mastoids: The visualized paranasal sinuses are clear. The mastoid air cells are well pneumatized. Orbits: The bony orbits are grossly intact. IMPRESSION: There is no hemorrhage, mass effect, or evidence of acute territorial ischemia by CT criteria noting evidence of remote left MCA territory infarct. CHEST ONE VIEW PORTABLE CLINICAL HISTORY: Stroke mental status change COMPARISON STUDY: No previous studies for comparison. FINDINGS: The bones soft tissues and hemidiaphragms are normal. The cardiomediastinal silhouette is normal. The lungs are clear. The pulmonary vasculature is normal. IMPRESSION: Negative chest. CT SCAN OF THE CERVICAL SPINE CLINICAL HISTORY: Fall. Neck pain. COMPARISON STUDY: No priors. TECHNIQUE: CT scan of the cervical spine is performed from the skull base to the upper thoracic spine. Images are reviewed in the axial, sagittal, and coronal planes. IV contrast was not administered for this examination. CT DOSE: 501.88 mGycm FINDINGS: Skeletal structures: The skeletal structures are well mineralized. There is no evidence of fracture or subluxation involving the cervical spine. Vertebral body height and alignment are maintained. There is straightening of the cervical lordosis. The odontoid process and lateral masses are intact. The atlantoaxial articulation is preserved. The spinous processes appear intact. Small anterior osteophytes are seen from C5-C7. Intervertebral discs: There is moderate degenerative disc space narrowing at C5-C6. The remaining disc spaces are well maintained. Central canal: A posterior disc osteophyte complex at C5-C6 likely contributes to acquired compromise of the central canal. Soft tissues: The prevertebral and paraspinous soft tissues are within normal limits. Calvarium: The visualized calvarium at the skull base appears intact. Brain parenchyma: Partially visualized brain parenchyma the skull base is within normal limits. Sinuses and mastoids: Trace mucosal thickening/fluid is seen within the maxillary antra. The mastoid air cells are well pneumatized. Lung apices: Clear as visualized. IMPRESSION: There is no evidence of fracture or subluxation involving the cervical spine. RIGHT HUMERUS MIN 2 VIEWS ROUTINE CLINICAL HISTORY: fall Right trauma. Pain. COMPARISON: None. DISCUSSION: Degenerative change right shoulder and right elbow. No well-defined acute bony abnormality of the humerus. Cortical margins are intact. There is no evidence for soft tissue swelling. IMPRESSION: Degenerative change. No acute bony abnormality. RIGHT FEMUR 2 VIEWS ROUTINE CLINICAL HISTORY: fall Right COMPARISON: None. DISCUSSION: Moderate degenerative change right hip. No evidence for acetabular protrusion. No acute bony abnormality. There is no evidence for soft tissue swelling. IMPRESSION: Degenerative change. No acute bony abnormality. RIGHT FOREARM 2 VIEWS ROUTINE CLINICAL HISTORY: fall Right trauma. Pain. COMPARISON: None. DISCUSSION: Intermittent subluxation of the radial ulnar articulation. The elbow show degenerative change. No additional acute bony abnormalities identified. There is no evidence for soft tissue swelling. IMPRESSION: Intermittent r positional subluxation of the radial ulnar articulation. PELVIS AND RIGHT HIP CT CT DOSE: 1395.78 mGy.cm HISTORY: R hip pain rule out pelvic fx TECHNIQUE: Multiaxial CT images of the pelvis and right hip were performed and reformatted in the sagittal and coronal plane without the use of contrast. COMPARISON: Pelvis and right hip 08/28/2016. FINDINGS: Mild osteoarthritis within the bilateral hips. Fusion hardware seen within the lower lumbar spine and S1 levels. No fracture or dislocation within the pelvis or hips. The sacrum appears intact. Tiny fat-containing bilateral inguinal hernias. The bladder is unremarkable. No pelvic hematoma identified. IMPRESSION: No fracture or dislocation within the pelvis or hips. EKG NSR 79 bpm, no ST or T wave abnormality Impression Assessment and Plan RIGHT HAND WEAKNESS Presents with increased R hand weakness from baseline and R shoulder, R forearm , R hip pain s/p fall Fall likely mechanical from the history; imaging + for intermittent positional subluxation of the radial ulnar articulation- will order splint, consult ortho, pain control with home Vicodin; remainder of imaging without acute findings; + multiple abrasions- tetanus vaccine UTD CT head- no acute findings, remote L MCA territory infarct Rule out acute CVA given multiple risk factors- hx of prior L MCA stroke 06/2007 with residual right hemiparesis hx PFO s/p closure at [facility] 01/2008, hypertension Check MRI brain, MRA head and neck, echo w/ bubble study Neuro checks Continue Plavix and statin PT, OT, speech consults Follows with [facility] neurolog[facility] Dr. Thakkar Consult [facility] neuro DYSPNEA ON EXERTION Present x 1 week Unclear etiology Lungs CTA; CXR clear Wells score 1.5 (low risk) due to hx DVT Pt reports neg stress echo [facility] approx 1 year ago HX DVT RLE 2007- IVC filter placed, hypercoag workup done- results unclear in Epic DVT RLE 01/2014 non provoked; Coumadin stopped by [facility] neuro 09/2015 SEIZURE DISORDER Neg prolonged EEG/ video monitoring 11/2013 at [facility] Stable; no recent seizure Seizure precautions Continue Depakote HYPERTENSION BP initially elevated, now normotensive Not on medication at home Monitor ALCOHOL USE Drinks 6-7 beers/ day; discussed cessation, pt agreeable Monitor for withdrawal Ativan PRN Thiamine daily HYPOTHYROIDISM Continue levothyroxine DEPRESSION/ ANXIETY Continue citalopram, trazodone, Klonopin Ativan single dose ordered to premedicate for MRI (pt reports claustrophobia) DVT PROPHYLAXIS Lovenox SQ FULL CODE DISPOSITION Admit to telemetry Follows with Sandy Barrios PA-C for primary care Patient seen in collaboration with Dr. Stephens. Please see his addendum. VTE Prophylaxis VTE Risk Assessment Done? Y/N: Yes Risk Level: Moderate Given or contraindicated: Enoxaparin (Lovenox)SQ Note ATTENDING ADDENDUM Record reviewed. Patient interviewed and examined. Care coordinated with Yulissa Pineda PA-C. Please refer to her documentation for patient's history. Briefly, 60 YO male with history of left MCA stroke with residual right hemiparesis. Managed at [facility]. Found to have PFO which was repaired. Usually ambulatory with cane. Lost balance today while trying to enter a truck. Fell to the ground and injured his right shoulder, arm, wrist, and hip. No apparent seizure, loss of consciousness. Seemed like his right-sided weakness was worse after the fall, but improved by the time he was evaluated in ED. EXAM: General- no acute distress VS- as noted HEENT- atraumatic Neck- supple, no JVD Lungs- clear Heart- RRR Abdomen- + BS, soft, nontender Extremities- no pretibial edema or calf tenderness; right hip pain with flexion Neuro- alert, oriented; PERRL, EOMI; right facial palsy; unable to raise right arm (at least partly due to shoulder pain); unable to extend right fingers; RLE 4/5; right toes upgoing DATA: Hgb 17.0 BUN 5, creat 1.0. Trop < 0.015. Other lab studies as noted. CXR- neg X-ray hip / pelvis- no fractures. X-ray right shoulder- no fractures or dislocation. X-ray right humerus- no fractures. X-ray right forearm- subluxation of the radial ulnar articulation; no fractures. X-ray right femur- no fracture. CT head- old left MCA infarct, no acute findings. CT cervical spine- small osteophytes C5-7, no fracture or subluxation CT lumbar spine- degenerative and postsurgical changes. CT pelvis / right hip- no fracture. ASSESSMENT AND PLAN: History of old left MCA ischemic stroke with residual right hemiparesis. Fall today with possible worsening right-sided weakness. Not candidate for TPA- neuro symptoms appeared to be back to baseline in ED. CT negative for acute event. Check MRI brain. Consult Neuro, PT, OT. Injured right shoulder, forearm, hip. Imaging as summarized above. Consult Ortho. Consult PT, OT. Please refer to JOE Pineda's documentation for discussion of other issues. Gordon Stephens MD .
[2016-08-28] MEDS: DIVALPROEX SODIUM 500 MG DELAY RELEASE TAB PO SCH (21:36)
[2016-08-28 23:29] VITALS: BP 114/74; PULSE 57; TEMP 36.6; O2SAT 92
[2016-08-29 04:00] VITALS: BP 118/67; PULSE 59; TEMP 36.8; O2SAT 93
[2016-08-29] MEDS: SODIUM CHLORIDE 0.9% 1000ML 1,000 ML IV SCH (04:20)
[2016-08-29] MEDS: HYDROCODONE/ACETAMOPHEN 5/325MG TAB PO PRN (05:01)
[2016-08-29] MEDS ORDERED: LEVOTHYROXINE 25 MCG TAB PO SCH (06:00)
[2016-08-29 06:58] LABS: ESTIMATED AVERAGE GLUCOSE 94 mg/dl; HA1C FLAG Normal (Normal)
[2016-08-29 07:02] LABS: BASO % 0.5 %; BASO ABS # 0.03 K/uL (0-0.2); COMPLETE YES; EOS % 3.2 %; HEMATOCRIT 44.6 % (42-52); IG% 0.5 %; LYMPH % 31.3 %; LYMPH ABS # 2.05 K/uL (1.2-3.4); MEAN CELL VOLUME 98.7 fL (80-100); MEAN CORPUSCULAR HEMOGLOBIN 33.6 pg (25-34); MEAN CORPUSCULAR HGB CONC 34.1 g/dl (32-36); MEAN PLATELET VOLUME 9.9 fL (7.4-10.4); MONO % 14.5 %; PLATELET COUNT 154 K/uL (130-400); RED BLOOD COUNT 4.52 M/uL (4.7-6.1); WHITE BLOOD COUNT 6.56 K/uL (4.8-10.8)
[2016-08-29 07:26] VITALS: BP 127/84; PULSE 57; TEMP 36.9; O2SAT 93
[2016-08-29 07:37] LABS: BUN/CREATININE RATIO 6.8 (10-20); CALCIUM 7.8 mg/dl (8.5-10.1); CREATININE 0.93 mg/dl (0.60-1.40); POTASSIUM 4.1 mmol/L (3.5-5.1)
[2016-08-29 07:39] LABS: CHOLESTEROL/HDL RATIO 2.2
[2016-08-29] MEDS: DIVALPROEX SODIUM 500 MG DELAY RELEASE TAB PO SCH (08:05)
[2016-08-29] MEDS ORDERED: THIAMINE HCL 100 MG TAB PO SCH (09:00)
[2016-08-29] MEDS ORDERED: CLOPIDOGREL BISULFATE 75 MG TAB PO SCH (09:00)
[2016-08-29] MEDS ORDERED: CYANOCOBALAMIN 500 MCG TAB (VIT B-12) PO SCH (09:00)
[2016-08-29] MEDS ORDERED: CITALOPRAM 20 MG TAB PO SCH (09:00)
[2016-08-29] MEDS ORDERED: LORAZEPAM 2 MG/ML 1 ML VIAL IV ONE (10:30)
[2016-08-29] MEDS: HYDROCODONE/ACETAMINOPHEN 7.5/325MG TAB PO PRN ×2 (10:33→17:23)
[2016-08-29] MEDS ORDERED: LORAZEPAM 2 MG/ML 1 ML VIAL ONE ×2 (13:37→14:40)
--- NOTE | 2016-08-29 13:52 | Progress Note ---
Medicine Progress Note Date & Time of Visit: August 29, 2016 at 13:19. Subjective Pt was seen and examined Lying in bed with no distress Pt said that he is having a lot of pain in his right arm He said that the pain in the right arm is about 7/10 and he is unable to move the fingers he said that his numbness, weakness and facial droop seems to resolve pt refused to get imaging done since he does not have any symptoms he wants to go home now I talked to him at least to get the imaging done before he made a decision to leave at beside and she convinced him to stay at least to get the MRI/MRA done and if they are negative that he will leave this afternoon. Denies any chest pain, palpitation, dizziness and sob. Objective Last 8 Hrs Date Time Temp Pulse Resp B/P Pulse Ox O2 Delivery O2 Flow Rate FiO2 08/29/16 12:00 Room Air 08/29/16 08:00 Room Air 08/29/16 07:26 36.9 57 16 127/84 93 Room Air Physical Exam: General- no acute distress, uncooperative Head- atraumatic Eyes- PERRL, EOMI ENT- oropharynx clear Neck- supple, no JVD Lungs- clear to auscultation Heart- regular rhythm; no murmur Abdomen- normal bowel sounds, soft Extremities- no calf tenderness Neuro- alert, oriented x 3; PERRL, EOMI; no facial palsy; no dysarthria Skin- warm & dry Laboratory Results: Last 24 Hours Test 08/28/16 14:40 08/28/16 14:45 08/28/16 14:51 08/28/16 15:14 Bedside Prothrombin Time INR 1.1 Bedside Glucose 106 mg/dl White Blood Count 8.16 K/uL Red Blood Count 4.95 M/uL Hemoglobin 17.0 g/dL Hematocrit 47.5 % Mean Corpuscular Volume 96.0 fL Mean Corpuscular Hemoglobin 34.3 pg Mean Corpuscular Hemoglobin Concent 35.8 g/dl Platelet Count 175 K/uL Mean Platelet Volume 10.5 fL Neutrophils (%) (Auto) 57.0 % Lymphocytes (%) (Auto) 27.0 % Monocytes (%) (Auto) 12.4 % Eosinophils (%) (Auto) 2.5 % Basophils (%) (Auto) 0.4 % Neutrophils # (Auto) 4.61 K/uL Lymphocytes # (Auto) 2.18 K/uL Monocytes # (Auto) 1.00 K/uL Eosinophils # (Auto) 0.20 K/uL Basophils # (Auto) 0.03 K/uL RDW Standard Deviation 41.9 fL RDW Coefficient of Variation 12.0 % Immature Granulocyte % (Auto) 0.7 % Immature Granulocyte # (Auto) 0.06 K/uL Red Blood Cell Morphology Unremarkable Sodium Level 139 mmol/L Potassium Level 4.3 mmol/L Chloride Level 104 mmol/L Carbon Dioxide Level 30 mmol/L Anion Gap 5.0 mmol/L 21.0 mmol/L Blood Urea Nitrogen 5 mg/dl Creatinine 1.00 mg/dl Est Creatinine Clear Calc Drug Dose 109.0 ml/min Estimated GFR () 95.7 Estimated GFR (Non- 82.6 BUN/Creatinine Ratio 5.4 Random Glucose 99 mg/dl Estimated Average Glucose 94 mg/dl Hemoglobin A1c 4.9 % Calcium Level 8.3 mg/dl Total Creatine Kinase 113 U/L Creatine Kinase MB 1.2 ng/ml Creatine Kinase MB Ratio 1.1 Troponin I < 0.015 ng/ml Bedside Hemoglobin 16.3 g/dl Bedside Hematocrit 48 % Bedside Sodium 138 mEq/L Bedside Potassium 4.5 mEq/L Bedside Chloride 97 mEq/L Bedside Total CO2 26 mEq/l Bedside Blood Urea Nitrogen 5 mg/dl Bedside Creatinine 0.9 mg/dl Bedside Glucose (other) 102 mg/dl Bedside Ionized Calcium (Herb) 1.11 mmol/l Urine Color YELLOW Urine Appearance CLEAR Urine pH 6.5 Urine Specific [place] 1.008 Urine Protein NEG Urine Glucose (UA) NEG Urine Ketones NEG Urine Occult Blood TRACE Urine Nitrite NEG Urine Bilirubin NEG Urine Urobilinogen NEG Urine Leukocyte Esterase NEG Urine WBC (Auto) 0 /hpf Urine RBC (Auto) 0-4 /hpf Urine Hyaline Casts (Auto) 1-5 /lpf Urine Epithelial Cells (Auto) 0-5 /lpf Urine Bacteria (Auto) NEG Urine Opiates Screen NEG Urine Methadone, Qualitative NEG Urine Barbiturates NEG Urine Phencyclidine (PCP) Level NEG Ur Amphetamine/Methamphetamine NEG MDMA (Ecstasy) Screen NEG Urine Benzodiazepines Screen NEG Urine Cocaine Metabolite NEG Urine Marijuana (THC) NEG Test 08/28/16 15:15 08/29/16 06:50 Prothrombin Time 10.8 SECONDS Prothromb Time International Ratio 1.0 Activated Partial Thromboplast Time 26.1 SECONDS Partial Thromboplastin Ratio 1.0 Ethyl Alcohol mg/dL < 3.0 mg/dl White Blood Count 6.56 K/uL Red Blood Count 4.52 M/uL Hemoglobin 15.2 g/dL Hematocrit 44.6 % Mean Corpuscular Volume 98.7 fL Mean Corpuscular Hemoglobin 33.6 pg Mean Corpuscular Hemoglobin Concent 34.1 g/dl Platelet Count 154 K/uL Mean Platelet Volume 9.9 fL Neutrophils (%) (Auto) 50.0 % Lymphocytes (%) (Auto) 31.3 % Monocytes (%) (Auto) 14.5 % Eosinophils (%) (Auto) 3.2 % Basophils (%) (Auto) 0.5 % Neutrophils # (Auto) 3.29 K/uL Lymphocytes # (Auto) 2.05 K/uL Monocytes # (Auto) 0.95 K/uL Eosinophils # (Auto) 0.21 K/uL Basophils # (Auto) 0.03 K/uL RDW Standard Deviation 44.8 fL RDW Coefficient of Variation 12.4 % Immature Granulocyte % (Auto) 0.5 % Immature Granulocyte # (Auto) 0.03 K/uL Sodium Level 142 mmol/L Potassium Level 4.1 mmol/L Chloride Level 107 mmol/L Carbon Dioxide Level 28 mmol/L Anion Gap 7.0 mmol/L Blood Urea Nitrogen 6 mg/dl Creatinine 0.93 mg/dl Est Creatinine Clear Calc Drug Dose 121.5 ml/min Estimated GFR () 104.5 Estimated GFR (Non- 90.2 BUN/Creatinine Ratio 6.8 Random Glucose 105 mg/dl Calcium Level 7.8 mg/dl Triglycerides Level 96 mg/dl Cholesterol Level 104 mg/dl HDL Cholesterol 48 mg/dl LDL Cholesterol, Calculated 37 mg/dl VLDL Cholesterol, Calculated 19 mg/dl Cholesterol/HDL Ratio 2.2 Assessment & Plan RIGHT HAND WEAKNESS Hx of CVA with right hemiparesis residual Need to r/o acute CVA Neuro symptoms seems to be back to his baseline- No TPA given CT head showed no hemorrhage, mass effect, or evidence of acute territorial ischemia. Remote L MCA territory infarct MRI/MRA head and echo pending tele monitor showed no arrhythmia Refused to get imaging done because he wants to go home and his symptoms resolved Continue statin, plavix and aspirin neuro consulted waiting for input PT/OT Continue monitor in tele DYSPNEA ON EXERTION Unclear etiology Lungs CTA and CXR are negative Wells score 1.5 (low risk) due to hx DVT hada neg stress echo [facility] [place] 1 [place] ago follow up on 2Decho Right HAND/ FOREARM/WRIST Pain no fracture seen on imaging Splint placed in the ER ortho consulted, but pt does not want to wait, he wants to go home advised pt to wait for a few minutes to see ortho, pt still refused He will follow up with ortho as an outpatient Follow up with Physical therapy as an outpatient On hydrocodone prn HX DVT RLE 2007- IVC filter placed DVT RLE 01/2014 non provoked Was on Coumadin that was discontinued by [facility] neuro 09/2015 SEIZURE DISORDER No recent seizure activity Seizure precautions Continue Depakote Stable HYPERTENSION BP Stable Not on medication at home Monitor ALCOHOL USE Drinks 6-7 beers/ day; d No sign of alcohol withdrawal Advised pt that he should not drink alcohol while he is on clonazepam Thiamine daily counseling on alcohol cessation HYPOTHYROIDISM Continue levothyroxine DEPRESSION/ ANXIETY Continue citalopram, trazodone, Klonopin Stable DVT PROPHYLAXIS Lovenox SQ CODE STATUS FULL CODE DISPOSITION Admit to telemetry Follows with Sandy Barrios PA-C for primary care Consultants: Orthopedic Neurology Procedures: Splint alignment Current Inpatient Medications: Current Inpatient Medications Medications (Trade) Dose Ordered Sig/Liss Route Start Time Stop Time Status Last Admin Dose Admin Miscellaneous Information 1 ea 1 ea UD PRN N/A 08/28/16 18:30 09/27/16 18:29 Sodium Chloride (Nss 1000ml) 1,000 ml @ 100 mls/hr Q10H IV 08/28/16 18:26 09/27/16 18:25 08/29/16 04:20 100 MLS/HR Enoxaparin Sodium (Lovenox Inj) 40 mg QPM SC 08/28/16 21:00 09/27/16 18:29 08/28/16 21:34 40 MG Acetaminophen (Tylenol Tab) 650 mg Q4H PRN PO 08/28/16 18:30 09/27/16 18:29 Ondansetron HCl (Zofran Inj) 4 mg Q6H PRN IV 08/28/16 18:30 09/27/16 18:29 Lorazepam (Ativan Tab) 1 mg ONE PRN PO 08/28/16 18:45 Citalopram Hydrobromide (celeXA TAB) 30 mg DAILY PO 08/29/16 09:00 09/28/16 08:59 08/29/16 08:05 30 MG Clonazepam (Klonopin Tab) 0.5 mg HS PO 08/28/16 21:00 09/27/16 20:59 08/28/16 21:38 0.5 MG Clopidogrel Bisulfate (plAVix TAB) 75 mg DAILY PO 08/29/16 09:00 09/28/16 08:59 08/29/16 08:05 75 MG Cyanocobalamin (Vitamin B-12 Tab) 1,000 mcg DAILY PO 08/29/16 09:00 09/28/16 08:59 08/29/16 08:04 1,000 MCG Divalproex Sodium (Depakote Delay Rel Tab) 500 mg BID PO 08/28/16 21:00 09/27/16 20:59 08/29/16 08:05 500 MG Levothyroxine Sodium (Synthroid Tab) 25 mcg DAILYBB PO 08/29/16 06:00 09/28/16 08:59 08/29/16 05:01 25 MCG Simvastatin (Zocor Tab) 10 mg HS PO 08/28/16 21:00 09/27/16 20:59 08/28/16 21:35 10 MG Thiamine HCl (Vitamin B-1 Tab) 100 mg DAILY PO 08/29/16 09:00 09/28/16 08:59 08/29/16 08:04 100 MG Trazodone HCl (Desyrel Tab) 100 mg HS PO 08/28/16 21:00 09/27/16 20:59 08/28/16 21:34 100 MG Acetaminophen/ Hydrocodone Bitart (Maysel 5/325 Tab) 1 tab Q6H PRN PO 08/28/16 19:15 09/11/16 19:14 08/29/16 05:01 1 TAB Acetaminophen/ Hydrocodone Bitart (Maysel 7.5/325 Tab) 1 tab Q6HWA PRN PO 08/29/16 10:15 09/12/16 10:14 08/29/16 10:33 1 TAB
[2016-08-29] MEDS ORDERED: PERFLUTREN LIPID MICROSPHERE (DEFINITY) IV ONE (13:54)
[2016-08-29] MEDS ORDERED: NURSING VERBAL MED ORDER ONE (15:00)
--- NOTE | 2016-08-29 15:29 | DIAGNOSTIC IMAGING REPORT ---
Brain MRA HISTORY: Mental status change Stroke - Attention to [place] TECHNIQUE: 3-D [id number] MRA of the brain was performed without contrast. COMPARISON STUDY: None. FINDINGS: The internal carotid arteries appear unremarkable. Anterior cerebral circulation originates from the left side exclusively. This can be an anatomic variant. Middle cerebral circulation is unremarkable. Posterior cerebral circulation is fed via what appears to be a solitary left vertebral artery combine with patent bilateral posterior communicating arteries. Right vertebral artery is not well seen. IMPRESSION: 1. 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 This may be secondary to congenital absence versus proximal stenosis. 2. Anterior middle and posterior cerebral circulation is otherwise unremarkable. Electronically signed by: Balaji Thomas M.D. 08/29/2016 3:27 PM Dictated Date/Time: 08/29/2016 3:24 PM
--- NOTE | 2016-08-29 15:35 | ECHOCARDIOGRAM REPORT ---
*NOTICE TO RECEIVING CONSTITUTION PARTY AGENCY This information is strictly Confidential and protected under [place] law. [place] law prohibits you from making any further disclosure of this information unless further disclosure is expressly permitted by the written consent of the person to whom it pertains or is authorized by law. A general authorization for the release of medical or other information is not sufficient for this purpose. Hospital accepts no responsibility if the information is made available to any other person, INCLUDING THE PATIENT. Interpretation Summary * Name: JUAN MANUEL PHILLIPS Study Date: 08/29/2016 01:31 PM BP: 127/84 mmHg * Patient Location: C.2T\S\S230\S\2 HR: 61 * : 1955 (M/d/yyyy) Gender: Male Height: 75 in * Age: 60 yrs Ethnicity: [place] Weight: 248 lb * Ordering Physician: Yulissa Pineda * Referring Physician: Self, Referred * Performed By: Bev Zamora RCS * * Reason For Study: TIA * BSA: 2.4 m2 * -- Conclusions -- * Normal LV chamber size with mild concentric LVH. * Normal LV systolic function, EF 60-65%. * No segmental left ventricular wall motion abnormalities are noted. * Grade II diastolic dysfunction. * No significant valvular pathology. Procedure Details * A complete two-dimensional transthoracic echocardiogram was performed (2D, M-mode, Doppler and color flow Doppler). * There were technical limitations due to patient'sbody habitus * A contrast injection of Definity was performed to improve assessment of LV function. * Contrast was injected into an intravenous site in the left arm. * One vial of Definity ultrasound contrast was diluted in normal saline to a total volume of 10 ml. A total of '2' ml of solution was administered during imaging. * Lot # [id number] of Definity utilized for procedure. * Expiration date SEP 23. * The attending nurse who injected the contrast agent was NITESH BERNAL, ELAINE. Left Ventricle * The left ventricle is normal in size. * There is mild concentric left ventricular hypertrophy. * Left ventricular systolic function is normal. * No segmental left ventricular wall motion abnormalities are noted. * Ejection Fraction = 60-65%. * The left ventricular wall motion is normal. Right Ventricle * The right ventricular cavity size is normal (basal dimension <4.2 cm in right ventricular apical 4-chamber view). * The right ventricular systolic function is normal as assessed by tricuspid annular plane systolic excursion (TAPSE) (normal >1.5 cm). Atria * The left atrial size is normal. * Right atrial size is normal. * No ASD detected; PFO is not assessed. Mitral Valve * The mitral valve is normal in structure and function. Tricuspid Valve * The tricuspid valve is normal in structure and function. Aortic Valve * The aortic valve is normal in structure and function. Pulmonic Valve * The pulmonary valve is not well seen, but the Doppler examination is normal without significant regurgitation or stenosis. Great Vessels * The aortic root is normal size. Pericardium/Pleural * There is no pericardial effusion. Left Ventricular Diastolic Function * Diastolic dysfunction, Grade II (pseudonormalization pattern). MMode 2D Measurements and Calculations IVSd 1.2 cm IVSs 1.5 cm LVIDd 3.1 cm LVIDs 1.9 cm LVPWd 1.2 cm LVPWs 1.3 cm IVS/LVPW 0.98 FS 38.8 % EDV(Teich) 37.9 ml ESV(Teich) 11.1 ml EF(Teich) 70.6 % EDV(cubed) 29.8 ml ESV(cubed) 6.8 ml EF(cubed) 77.0 % % IVS thick 27.1 % % LVPW thick 8.4 % LV mass(C)d 118.1 grams LV mass(C)dI 49.1 grams/m\S\2 LV mass(C)s 85.8 grams LV mass(C)sI 35.7 grams/m\S\2 SV(Teich) 26.8 ml SI(Teich) 11.1 ml/m\S\2 SV(cubed) 23.0 ml SI(cubed) 9.6 ml/m\S\2 Ao root diam 3.6 cm Ao root area 10.1 cm\S\2 ACS 2.3 cm LA dimension 3.6 cm LA/Ao 0.99 LVOT diam 2.0 cm LVOT area 3.1 cm\S\2 LVAd ap4 38.0 cm\S\2 LVLd ap4 8.4 cm EDV(MOD-sp4) 141.7 ml EDV(sp4-el) 146.1 ml LVAs ap4 26.8 cm\S\2 LVLs ap4 7.6 cm ESV(MOD-sp4) 78.2 ml ESV(sp4-el) 80.4 ml EF(MOD-sp4) 44.8 % EF(sp4-el) 45.0 % LVAd ap2 34.6 cm\S\2 LVLd ap2 8.9 cm EDV(MOD-sp2) 113.9 ml EDV(sp2-el) 114.6 ml LVAs ap2 17.9 cm\S\2 LVLs ap2 7.2 cm ESV(MOD-sp2) 36.7 ml ESV(sp2-el) 37.9 ml EF(MOD-sp2) 67.8 % EF(sp2-el) 66.9 % LVLd %diff 5.3 % EDV(MOD-bp) 127.9 ml LVLs %diff -5.68 % ESV(MOD-bp) 54.9 ml EF(MOD-bp) 57.1 % SV(MOD-sp4) 63.5 ml SI(MOD-sp4) 26.4 ml/m\S\2 SV(MOD-sp2) 77.2 ml SI(MOD-sp2) 32.1 ml/m\S\2 SV(MOD-bp) 73.0 ml SI(MOD-bp) 30.4 ml/m\S\2 SV(sp4-el) 65.7 ml SI(sp4-el) 27.3 ml/m\S\2 SV(sp2-el) 76.7 ml SI(sp2-el) 31.9 ml/m\S\2 Doppler Measurements and Calculations MV E max tremaine 62.7 cm/sec MV A max tremaine 57.5 cm/sec MV E/A 1.1 MV P1/2t max tremaine 80.0 cm/sec MV P1/2t 75.4 msec MVA(P1/2t) 2.9 cm\S\2 MV dec slope 310.7 cm/sec\S\2 MV dec time 0.31 sec Ao V2 max 111.8 cm/sec Ao max PG 5.0 mmHg Ao max PG (full) 1.1 mmHg JULIEN(V,A) 2.8 cm\S\2 JULIEN(V,D) 2.8 cm\S\2 LV V1 max PG 3.9 mmHg LV V1 max 98.5 cm/sec PA V2 max 85.9 cm/sec PA max PG 3.0 mmHg PI max tremaine 160.1 cm/sec PI max PG 10.3 mmHg PI dec slope 168.0 cm/sec\S\2 PI P1/2t 279.0 msec
--- NOTE | 2016-08-29 15:55 | DIAGNOSTIC IMAGING REPORT ---
Brain MRI WITHOUT CONTRAST HISTORY: Mental status change Stroke TECHNIQUE: Multiplanar multisequence MRI of the brain was performed without the use of contrast. COMPARISON STUDY: None. FINDINGS: There are no areas of restricted diffusion to suggest acute infarction. The midline structures are intact. The paranasal sinuses are clear. The mastoid air cells are clear. The ventricles and sulci are within normal limits for age. There is no mass, hematoma, midline shift. The major vascular flow-voids at the skull base are well maintained. Evidence for old left middle cerebral arterial infarct. No midline shift. Sella and parasellar regions are unremarkable. Cerebellar tonsils are low-lying. Moderate compensatory prominence of the ventricular system. IMPRESSION: 1. No evidence for an acute ischemic insult. 2. Old left middle cerebral arterial territory infarct. 3. Atrophy with evidence for compensatory prominence of the ventricular system. Electronically signed by: Balaji Thomas M.D. 08/29/2016 3:54 PM Dictated Date/Time: 08/29/2016 3:50 PM
[2016-08-29 15:58] VITALS: BP 156/81; PULSE 75; TEMP 36.8; O2SAT 94
[2016-08-29] MEDS ORDERED: GADAVIST IV PRN (16:00)
--- NOTE | 2016-08-29 16:07 | DIAGNOSTIC IMAGING REPORT ---
NECK MRA HISTORY: Stroke TECHNIQUE: [id number] and gadolinium-enhanced MRA of the neck was performed both before and after the intravenous administration of contrast. All measurements were calculated based on NASCET criteria. COMPARISON STUDY: None. FINDINGS: The aortic arch and proximal great vessels are widely patent. There is no significant stenosis, occlusion, or dissection identified within the bilateral common carotid, internal carotid, or vertebral arteries. Hypoplastic right vertebral artery. IMPRESSION: No significant stenosis, occlusion, or dissection identified within the carotid or vertebral arteries. Electronically signed by: Volodymyr Jeter M.D. 08/29/2016 4:05 PM Dictated Date/Time: 08/29/2016 3:52 PM
[2016-08-29 16:10] VITALS: BP 127/84; PULSE 57; TEMP 36.9; O2SAT 93
--- NOTE | 2016-08-29 16:36 | Neurology Consultation ---
Neurology Consultation Date of Consultation: August 29, 2016. Attending Physician: Deepa Tapia M.D. 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 is in the room and states they follow with [facility] neurology Dr. Thakkar. He has right arm and leg weakness and chronic right facial droop at baseline and ambulates with his cane. Around 2 pm yesterday he was out with his brother in law having lunch and 2 beers. He then was trying to get up in his brothers vehicle lost his e commerce architect and fell out of the truck. He fell on his right shoulder, right arm, right hip, and left hand and has abrasions on both upper extremities. He has pain in right distal forearm rated 6/10 and pain in the right hip which is less severe, but worsens with movement it is currently wrapped and braced. Does not climb more than 2 stairs. He denies vision change, speech or swallowing difficulty, recent seizure, additional weakness numbness tingling greater than baseline, abdominal pain, N/V/D, Last echo was stress test which was negative approx 1 year ago at [facility]. Past Medical/Surgical History Medical Problems: (1) Altered mental status Status: Acute (2) Contusion, hip Status: Acute (3) Fall Status: Acute (4) Lumbar contusion Status: Acute (5) Shoulder contusion Status: Acute (6) TIA (transient ischemic attack) Status: Acute Social History Alcohol Use: heavy (6-7 beers per day since October 2015. 2 beers today. ) Drug Use: none Marital Status: Housing Status: lives with family Occupation Status: disabled Allergies Coded Allergies: BEE STING (Unverified Allergy, Unknown, UNKNOWN, 08/28/16) Lisinopril (Unverified Allergy, Unknown, UNKNOWN, 08/28/16) Morphine (Unverified Allergy, Unknown, SHORTNESS OF BREATH, 08/28/16) Nortriptyline (Unverified Allergy, Unknown, UNKNOWN, 08/28/16) Current Inpatient Medications Current Inpatient Medications Medications (Trade) Dose Ordered Sig/Liss Route Start Time Stop Time Status Last Admin Dose Admin Miscellaneous Information 1 ea 1 ea UD PRN N/A 08/28/16 18:30 09/27/16 18:29 Sodium Chloride (Nss 1000ml) 1,000 ml @ 100 mls/hr Q10H IV 08/28/16 18:26 09/27/16 18:25 08/29/16 04:20 100 MLS/HR Enoxaparin Sodium (Lovenox Inj) 40 mg QPM SC 08/28/16 21:00 09/27/16 18:29 08/28/16 21:34 40 MG Acetaminophen (Tylenol Tab) 650 mg Q4H PRN PO 08/28/16 18:30 09/27/16 18:29 Ondansetron HCl (Zofran Inj) 4 mg Q6H PRN IV 08/28/16 18:30 09/27/16 18:29 Lorazepam (Ativan Tab) 1 mg ONE PRN PO 08/28/16 18:45 Citalopram Hydrobromide (celeXA TAB) 30 mg DAILY PO 08/29/16 09:00 09/28/16 08:59 08/29/16 08:05 30 MG Clonazepam (Klonopin Tab) 0.5 mg HS PO 08/28/16 21:00 09/27/16 20:59 08/28/16 21:38 0.5 MG Clopidogrel Bisulfate (plAVix TAB) 75 mg DAILY PO 08/29/16 09:00 09/28/16 08:59 08/29/16 08:05 75 MG Cyanocobalamin (Vitamin B-12 Tab) 1,000 mcg DAILY PO 08/29/16 09:00 09/28/16 08:59 08/29/16 08:04 1,000 MCG Divalproex Sodium (Depakote Delay Rel Tab) 500 mg BID PO 08/28/16 21:00 09/27/16 20:59 08/29/16 08:05 500 MG Levothyroxine Sodium (Synthroid Tab) 25 mcg DAILYBB PO 08/29/16 06:00 09/28/16 08:59 08/29/16 05:01 25 MCG Simvastatin (Zocor Tab) 10 mg HS PO 08/28/16 21:00 09/27/16 20:59 08/28/16 21:35 10 MG Thiamine HCl (Vitamin B-1 Tab) 100 mg DAILY PO 08/29/16 09:00 09/28/16 08:59 08/29/16 08:04 100 MG Trazodone HCl (Desyrel Tab) 100 mg HS PO 08/28/16 21:00 09/27/16 20:59 08/28/16 21:34 100 MG Acetaminophen/ Hydrocodone Bitart ([place] 5/325 Tab) 1 tab Q6H PRN PO 08/28/16 19:15 09/11/16 19:14 08/29/16 05:01 1 TAB Acetaminophen/ Hydrocodone Bitart ([place] 7.5/325 Tab) 1 tab Q6HWA PRN PO 08/29/16 10:15 09/12/16 10:14 08/29/16 10:33 1 TAB Gadobutrol (Gadavist) 11 mmol UD PRN IV 08/29/16 16:00 09/02/16 15:59 Physical Exam Vital Signs (Past 24 Hrs): Date Time Temp Pulse Resp B/P Pulse Ox O2 Delivery O2 Flow Rate FiO2 08/29/16 16:00 Room Air 08/29/16 12:00 Room Air 08/29/16 08:00 Room Air 08/29/16 07:26 36.9 57 16 127/84 93 Room Air 08/29/16 04:00 Room Air 08/29/16 04:00 36.8 59 18 118/67 93 Room Air 08/29/16 00:00 Room Air 08/28/16 23:29 36.6 57 18 114/74 92 Room Air 08/28/16 20:43 36.9 66 16 127/78 94 Room Air 08/28/16 20:40 94 Room Air 08/28/16 20:01 148/102 08/28/16 19:45 69 21 93 Room Air 08/28/16 19:39 142/81 08/28/16 19:31 08/28/16 19:30 63 08/28/16 19:15 63 17 08/28/16 19:01 186/93 08/28/16 18:45 64 16 08/28/16 17:32 68 16 145/78 97 Room Air 08/28/16 17:29 71 16 08/28/16 17:17 140/72 08/28/16 17:15 70 16 140/72 97 Room Air Physical Exam: Constitutional: appearance nourished, obese Ears, Nose, Mouth and Throat: mucous membranes moist, no injection and skin normal, eyes normal Cardiovascular: normal S-1 and S-2 and regular rate and rhythm Respiratory: clear to auscultation (CTA) and no rales, rhonchi or wheeze Musculoskeletal: bilaterally non pitting edema, right arm wrapped fingers contracted Skin: multiple abrasions right side Eyes: extraocular muscles intact (EOMI) and pupils equal, round and reactive to light (PERRL) NEUROLOGIC EXAMINATION: Mental status: Alert and interactive Oriented date, place Oriented to person Speech fluent with no evidence of aphasia Cranial Nerves right sided facial droop with flattening of nasolabial fold, tongue midline Reflexes: Deep tendon reflexes were symmetrical and graded 2/5. Plantar responses were flexor. Sensory: bilaterally cool touch decreased glover down, GT proprioception absent, vibration intact Coordination: finger to nose on left intact with no reaching tremor Gait/Stance: Posture normal. Gait normal: with steady with steps, base,and tandem gait, with limp, walks with cane Motor: no able to fully assess due to injury on right fore arm Strength: left arm biceps triceps deltoid 5/5, right arm curling of finger without volunteer movement, hip flex bilaterally 5/5 Laboratory Results Past 24 Hours: 08/29/16 06:50 Red Blood Count 4.52, Mean Corpuscular Volume 98.7, Mean Corpuscular Hemoglobin 33.6, Mean Corpuscular Hemoglobin Concent 34.1, Mean Platelet Volume 9.9, Neutrophils (%) (Auto) 50.0, Lymphocytes (%) (Auto) 31.3, Monocytes (%) (Auto) 14.5, Eosinophils (%) (Auto) 3.2, Basophils (%) (Auto) 0.5, Neutrophils # (Auto ) 3.29, Lymphocytes # (Auto) 2.05, Monocytes # (Auto) 0.95, Eosinophils # (Auto ) 0.21, Basophils # (Auto) 0.03 08/29/16 06:50 Test 08/29/16 06:50 White Blood Count 6.56 K/uL (4.8-10.8) Red Blood Count 4.52 M/uL (4.7-6.1) Hemoglobin 15.2 g/dL (14.0-18.0) Hematocrit 44.6 % (42-52) Mean Corpuscular Volume 98.7 fL (80-100) Mean Corpuscular Hemoglobin 33.6 pg (25-34) Mean Corpuscular Hemoglobin Concent 34.1 g/dl (32-36) Platelet Count 154 K/uL (130-400) Mean Platelet Volume 9.9 fL (7.4-10.4) Neutrophils (%) (Auto) 50.0 % Lymphocytes (%) (Auto) 31.3 % Monocytes (%) (Auto) 14.5 % Eosinophils (%) (Auto) 3.2 % Basophils (%) (Auto) 0.5 % Neutrophils # (Auto) 3.29 K/uL (1.4-6.5) Lymphocytes # (Auto) 2.05 K/uL (1.2-3.4) Monocytes # (Auto) 0.95 K/uL (0.11-0.59) Eosinophils # (Auto) 0.21 K/uL (0-0.5) Basophils # (Auto) 0.03 K/uL (0-0.2) RDW Standard Deviation 44.8 fL (36.4-46.3) RDW Coefficient of Variation 12.4 % (11.5-14.5) Immature Granulocyte % (Auto) 0.5 % Immature Granulocyte # (Auto) 0.03 K/uL (0.00-0.02) Anion Gap 7.0 mmol/L (3-11) Est Creatinine Clear Calc Drug Dose 121.5 ml/min Estimated GFR () 104.5 Estimated GFR (Non- 90.2 BUN/Creatinine Ratio 6.8 (10-20) Calcium Level 7.8 mg/dl (8.5-10.1) Triglycerides Level 96 mg/dl (0-150) Cholesterol Level 104 mg/dl (0-200) HDL Cholesterol 48 mg/dl LDL Cholesterol, Calculated 37 mg/dl VLDL Cholesterol, Calculated 19 mg/dl Cholesterol/HDL Ratio 2.2 Imaging TTE- Normal LV chamber size with mild concentric LVH. * Normal LV systolic function, EF 60-65%. * No segmental left ventricular wall motion abnormalities are noted. * Grade II diastolic dysfunction. * No significant valvular pathology. NO ASD MRI with and without contrast- . No evidence for an acute ischemic insult. Old left middle cerebral arterial territory infarct. Atrophy with evidence for compensatory prominence of the ventricular system. MRA- head - Non visibility of the right vertebral artery. This may be secondary to congenital absence versus proximal stenosis. Anterior middle and posterior cerebral circulation is otherwise unremarkable. MRA neck - No significant stenosis, occlusion, or dissection identified within the carotid or vertebral arteries. Impression 60 year old male s/p fall with history of left MCA stroke 2007 Plan 1. MRI/MRA head and neck- no acute findings 2. continue plavix 75 mg as prescribed by [facility] team 3. seizure disorder - currently on Depakote 500 mg BID would check level 4. discussed with patient appears to be a mechanical fall out of a truck 5. may need physical therapy for right hand 6. EtOH and tobacco counselling refused I have seen and discussed above patient with Dr Angela Puentes, neurology Pt seen and examined. Fell when reaching to get up into a truck. No reported increase in weakness. No headache. Exam notable for R hemiparesis. MRI no acute infarct. Nonvisualization of R vert. I do not know the chronicity, however this is unrelated to his prior stroke and is asymptomatic. Will sign off, MIGUEL Puentes MD
[2016-08-29] MEDS ORDERED: HYDR-4330 PO (17:30)
--- NOTE | 2016-08-29 17:41 | Discharge Instructions ---
Discharge Instructions Date of Service August 29, 2016. Admission Reason for Admission: TIA Discharge Discharge Diagnosis / Problem: RIGHT HAND WEAKNESS, ALCOHOL USE, RIGHT HAND PAIN, HYPERTENSION Discharge Goals Goal(s): Decrease discomfort, Improve function, Improve disease control Activity Recommendations Activity Limitations: resume your previous activity (Gradually as tolerated) . Instructions / Follow-Up Instructions / Follow-Up Follow up with your primary care provider Denis YOUNGBLOOD on 09/05 @ 11 am Follow up with ortho if right arm pain worsening Continue physical therapy for the right arm pain Fall precaution Do not drive or operate any machine after taking hydrocodone No alcohol while on clonazepam and hydrocodone Current Hospital Diet Patient's current hospital diet: AHA Diet (Heart Healthy) Discharge Diet Recommended Diet: AHA Diet (Heart Healthy) Procedures Procedures Performed: Splint alignment Pending Studies Studies pending at discharge: no Laboratory Results Hemoglobin A1c Test 08/28/16 14:45 Range/Units Estimated Average Glucose 94 mg/dl Hemoglobin A1c 4.9 4.5-5.6 % Lipid Panel Test 08/29/16 06:50 Range/Units Triglycerides Level 96 0-150 mg/dl Cholesterol Level 104 0-200 mg/dl HDL Cholesterol 48 mg/dl Cholesterol/HDL Ratio 2.2 LDL Cholesterol, Calculated 37 mg/dl Medical Emergencies . Who to Call and When: Medical Emergencies: If at any time you feel your situation is an emergency, please call 911 immediately. . Non-Emergent Contact Non-Emergency issues call your: Primary Care Provider Call Non-Emergent contact if: your pain is not controlled, your pain is worsening, you have any medication questions . . "Provider Documentation" section prepared by Deepa Tapia. . VTE Core Measure Inpt VTE Proph given/why not?: Enoxaparin (Lovenox)SQ
--- NOTE | 2016-09-10 01:05 | Discharge Summary ---
Discharge Summary Date of Service Sep 10, 2016. Discharge Summary Admission Date: August 28, 2016 at 18:26 Discharge Date: August 29, 2016 Discharge Disposition: Home Principal Diagnosis: RIGHT HAND WEAKNESS Secondary Diagnoses/Problems: ALCOHOL USE RIGHT HAND PAIN HYPERTENSION DYSPNEA ON EXERTION SEIZURE DISORDER DEPRESSION/ ANXIETY HYPOTHYROIDISM Procedures: Splint alignment Consultations: Orthopedic Neurology Medication Reconciliation Changed Medications: Hydrocodone-Acetaminophen (Lortab 5-325 mg) 1 Tab Tab 1 TAB PO Q8 PRN for Pain for 5 Days, #15 (Changed from: Q6) hold for drowsiness and lethargy Continued Medications: Citalopram (Citalopram Hydrobromide) 20 Mg Tab 30 MG PO DAILY Clonazepam (Klonopin) 0.5 Mg Tab 0.5 MG PO HS, TAB Clopidogrel (Plavix) 75 Mg Tab 75 MG PO DAILY, TAB Cyanocobalamin (Vitamin B-12) 1,000 Mcg Tab 1000 MCG PO DAILY, TAB Divalproex Sodium (Depakote) 500 Mg Tab 500 MG PO BID, TAB 2 Refills Levothyroxine Sodium (Levothyroxine Sodium) 25 Mcg Tab 25 MCG PO QAM for 90 Days, #90 TAB 3 Refills Simvastatin (Zocor) 10 Mg Tab 10 MG PO HS, TAB Thiamine Hcl (Vitamin B-1) 100 Mg Tab 100 MG PO DAILY, TAB Trazodone Hcl (Trazodone) 100 Mg Tab 100 MG PO HS, TAB Admission Information HPI (per Admitting provider): This is a 60 year old male with PMH of 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 Patient f/w [facility] neurology Dr. Thakkar. Pt reports chronic right arm and leg weakness and chronic right facial droop. Patient states this morning his R side weakness and balance difficulty were at baseline and he had been ambulating with his cane. Then today around 2 pm after having lunch and 2 beers he fell backwards due to "losing his balance" trying to get into his brother in law's truck. He denies dizziness, LOC, head trauma. Patient hit is right shoulder, right arm, right hip , and left hand and has abrasions on both upper extremities. Currently he reports pain in right distal forearm rated 6/10 and pain in the right hip which is less severe, but worsens with movement. 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 He reports chronic numbness dorsum of right foot but no acute numbness. Pt notes FERRERA ambulating around the house x 1 week. Does not climb more than 2 stairs. Does not lie flat due to back problems. He denies vision change, speech or swallowing difficulty, recent seizure, fever, chills, URI symptoms, cough, SOB at rest, chest pain, palpitations, abdominal pain, N/V/D, dysuria, frequency, calf pain, edema, weight gain. No recent brain or carotid imaging. Last echo was stress test which was negative approx 1 year ago at [facility]. Denies hx of arrhythmia. Physical Exam (per Admitting): General Appearance: WD/WN, no apparent distress, + pertinent finding ( at bedside) Head: normocephalic, atraumatic Eyes: normal inspection, PERRL, EOMI ENT: hearing grossly normal, pharynx normal Neck: supple, trachea midline Respiratory/Chest: lungs clear, normal breath sounds, no respiratory distress, no accessory muscle use Cardiovascular: regular rate, rhythm, no murmur Abdomen/GI: normal bowel sounds, non tender, soft Extremities/Musculoskelatal: no calf tenderness, no pedal edema, + pertinent finding (R shoulder joint nontender to palpation, + R shoulder pain/ guarding with minimal ROM. right elbow nontender. + tenderness right distal radius and distal ulna areas. R wrist ROM limisted by pain. no swelling/ erthema. right hip pain with ROM. 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 remainder of RUE unable to test due to painful ROM. LUE strength 5/5. right hip motor exam limited by painful ROM. bilateral knee extension 5/5 and ankle flexion/ extension 5/5. toes downgoing bilaterally. finger to nose intact LUE. ) Skin: normal color, warm/dry, + pertinent finding (multiple abrasions right and left upper extremities) Hospital Course RIGHT HAND WEAKNESS Hx of CVA with right hemiparesis residual Need to r/o acute CVA Neuro symptoms seems to be back to his baseline- No TPA given CT head showed no hemorrhage, mass effect, or evidence of acute territorial ischemia. Remote L MCA territory infarct MRI/MRA head and echo pending tele monitor showed no arrhythmia Refused to get imaging done because he wants to go home and his symptoms resolved Continue statin, plavix and aspirin neuro consulted waiting for input PT/OT Continue monitor in tele DYSPNEA ON EXERTION Unclear etiology Lungs CTA and CXR are negative Wells score 1.5 (low risk) due to hx DVT hada neg stress echo [facility] approx 1 year ago follow up on 2Decho Right HAND/ FOREARM/WRIST Pain no fracture seen on imaging Splint placed in the ER ortho consulted, but pt does not want to wait, he wants to go home advised pt to wait for a few minutes to see ortho, pt still refused He will follow up with ortho as an outpatient Follow up with Physical therapy as an outpatient On hydrocodone prn HX DVT RLE 2007- IVC filter placed DVT RLE 01/2014 non provoked Was on Coumadin that was discontinued by [facility] neuro 09/2015 SEIZURE DISORDER No recent seizure activity Seizure precautions Continue Depakote Stable HYPERTENSION BP Stable Not on medication at home Monitor ALCOHOL USE Drinks 6-7 beers/ day; d No sign of alcohol withdrawal Advised pt that he should not drink alcohol while he is on clonazepam Thiamine daily counseling on alcohol cessation HYPOTHYROIDISM Continue levothyroxine DEPRESSION/ ANXIETY Continue citalopram, trazodone, Klonopin Stable DVT PROPHYLAXIS Lovenox SQ CODE STATUS FULL CODE DISPOSITION Admit to telemetry Follows with Sandy Barrios PA-C for primary care Total time spent on discharge = 35 minutes This includes examination of the patient, discharge planning, medication reconciliation, and communication with other providers. Discharge Instructions DI: Medical v4 Discharge Instructions Date of Service August 29, 2016. Admission Reason for Admission: TIA Discharge Discharge Diagnosis / Problem: RIGHT HAND WEAKNESS, ALCOHOL USE, RIGHT HAND PAIN, HYPERTENSION Discharge Goals Goal(s): Decrease discomfort, Improve function, Improve disease control Activity Recommendations Activity Limitations: resume your previous activity (Gradually as tolerated) . Instructions / Follow-Up Instructions / Follow-Up Follow up with your primary care provider Denis YOUNGBLOOD on 09/05 @ 11 am Follow up with ortho if right arm pain worsening Continue physical therapy for the right arm pain Fall precaution Do not drive or operate any machine after taking hydrocodone No alcohol while on clonazepam and hydrocodone Current Hospital Diet Patient's current hospital diet: AHA Diet (Heart Healthy) Discharge Diet Recommended Diet: AHA Diet (Heart Healthy) Procedures Procedures Performed: Splint alignment Pending Studies Studies pending at discharge: no Laboratory Results Hemoglobin A1c Test 08/28/16 14:45 Range/Units Estimated Average Glucose 94 mg/dl Hemoglobin A1c 4.9 4.5-5.6 % Lipid Panel Test 08/29/16 06:50 Range/Units Triglycerides Level 96 0-150 mg/dl Cholesterol Level 104 0-200 mg/dl HDL Cholesterol 48 mg/dl Cholesterol/HDL Ratio 2.2 LDL Cholesterol, Calculated 37 mg/dl Medical Emergencies . Who to Call and When: Medical Emergencies: If at any time you feel your situation is an emergency, please call 911 immediately. . Non-Emergent Contact Non-Emergency issues call your: Primary Care Provider Call Non-Emergent contact if: your pain is not controlled, your pain is worsening, you have any medication questions . . "Provider Documentation" section prepared by Deepa Tapia. . VTE Core Measure Inpt VTE Proph given/why not?: Enoxaparin (Lovenox)SQ Additional Copies To Sandy Barrios PA-C
--- NOTE | 2016-09-11 20:12 | CONSULTATION REPORT ---
DATE OF CONSULTATION: 08/29/2016 We were consulted to see the patient for right wrist and right hip pain. The patient was discharged prior to us seeing him.
== END 2016-08-29 18:05 | disposition home or self-care (01) | DRG 948 ==
LOC: ENRESERVTM → ENRESERVDT → EDBD 14:34 → C.EDB 14:36 → C.2T 18:26
PROVIDERS: ADMIT Hospitalist; ATTEND Internal Medicine
DX: R53.1 Weakness (principal); I69.351 Hemiplegia and hemiparesis following cerebral infarction affecting right dominant side; R41.82 Altered mental status, unspecified; R29.810 Facial weakness; R06.00 Dyspnea, unspecified; S40.011A Contusion of right shoulder, initial encounter; S70.01XA Contusion of right hip, initial encounter; S30.0XXA Contusion of lower back and pelvis, initial encounter; V48.4XXA Person boarding or alighting a car injured in noncollision transport accident, initial encounter; G89.11 Acute pain due to trauma; M79.631 Pain in right forearm; I10 Essential (primary) hypertension; E03.9 Hypothyroidism, unspecified; G40.909 Epilepsy, unspecified, not intractable, without status epilepticus; F41.9 Anxiety disorder, unspecified; F32.9 Major depressive disorder, single episode, unspecified; Z86.718 Personal history of other venous thrombosis and embolism; Z87.74 Personal history of (corrected) congenital malformations of heart and circulatory system; Z72.89 Other problems related to lifestyle; Z79.02 Long term (current) use of antithrombotics/antiplatelets; Z79.891 Long term (current) use of opiate analgesic; Z79.899 Other long term (current) drug therapy

== ENCOUNTER 2017-02-16 14:38 | Inpatient (IN) | payer OTHER ==
[~2017-02-16] VITALS: Ht 190.5 cm; Wt 114.3 kg
[~2017-02-16 14:38] MED LIST: HYDR-4330 PO
[2017-02-16] MEDS ORDERED: SODIUM CHLORIDE 0.9% 1000ML 1,000 ML IV SCH (14:58)
--- NOTE | 2017-02-16 15:16 | DIAGNOSTIC IMAGING REPORT ---
HEAD WITHOUT CONTRAST (CT) CLINICAL HISTORY: 61 years-old Male presenting with Stroke, altered mental status, lethargic. TECHNIQUE: Multidetector CT imaging of the head was performed without the use of intravenous contrast. IV contrast: None. A dose lowering technique was used consistent with the principles of ALARA (as low as reasonably achievable). COMPARISON: 08/28/2016. CT DOSE (mGy.cm): The estimated cumulative dose is 614.27 mGy.cm. FINDINGS: [employer] Candy Spinner topogram: Unremarkable. Proportional ventricular and sulcal prominence, likely age-related parenchymal volume loss. Chronic left middle cerebral artery territory infarct in the left frontotemporal region. No mass effect or midline shift. No hemorrhage or acute territorial infarct. No extra-axial fluid collection. Paranasal sinuses and mastoid air cells clear. Calvarium intact. IMPRESSION: 1. No acute intracranial pathology. 2. Chronic left middle cerebral artery territory infarct. Electronically signed by: Nikolai Weir M.D. 02/16/2017 3:15 PM Dictated Date/Time: 02/16/2017 3:13 PM
[2017-02-16] MEDS ORDERED: CLX20 PO (15:19)
[2017-02-16] MEDS ORDERED: THIA100T11 PO (15:19)
[2017-02-16] MEDS ORDERED: LEVO25TA5 PO (15:19)
[2017-02-16] MEDS ORDERED: CLOP1TAB15 PO (15:19)
[2017-02-16] MEDS ORDERED: CLON0.5T3 PO (15:19)
[2017-02-16] MEDS ORDERED: SIMV10TA2 PO (15:19)
[2017-02-16] MEDS ORDERED: TRAZ100T29 PO (15:19)
[2017-02-16] MEDS ORDERED: CYAN10005 PO (15:19)
[2017-02-16] MEDS ORDERED: DIVA500T59 PO (15:19)
[2017-02-16] MEDS ORDERED: HYDR-5688 PO (15:27)
[2017-02-16] MEDS ORDERED: WHEATAB2 PO (15:27)
--- NOTE | 2017-02-16 15:30 | DIAGNOSTIC IMAGING REPORT ---
CHEST ONE VIEW PORTABLE CLINICAL HISTORY: 61 years-old Male presenting with Stroke. TECHNIQUE: Portable upright AP view of the chest was obtained. COMPARISON: 08/28/2016. FINDINGS: Mild prominence and atherosclerosis of the thoracic aorta. Cardiac silhouette top normal in size. Lungs and pleural spaces clear. Osseous structures normal. Upper abdomen normal. IMPRESSION: 1. No acute cardiopulmonary disease. Electronically signed by: Nikolai Weir M.D. 02/16/2017 3:28 PM Dictated Date/Time: 02/16/2017 3:28 PM
[2017-02-16 15:33] LABS: BASO % 0.2 %; BASO ABS # 0.02 K/uL (0-0.2); COMPLETE YES; EOS % 0.8 %; HEMATOCRIT 49.3 % (42-52); IG% 0.6 %; LYMPH % 23.2 %; LYMPH ABS # 2.09 K/uL (1.2-3.4); MEAN CELL VOLUME 97.6 fL (80-100); MEAN CORPUSCULAR HGB CONC 35.9 g/dl (32-36); MEAN PLATELET VOLUME 10.1 fL (7.4-10.4); MONO % 9.6 %; NEUT % 65.6 %; PLATELET COUNT 162 K/uL (130-400); RED BLOOD COUNT 5.05 M/uL (4.7-6.1)
[2017-02-16 16:12] LABS: BLOOD UREA NITROGEN 8 mg/dl (7-18); BUN/CREATININE RATIO 7.8 (10-20); CALCIUM 8.9 mg/dl (8.5-10.1); CARBON DIOXIDE 29 mmol/L (21-32); CHLORIDE 102 mmol/L (98-107); CREATININE 0.98 mg/dl (0.60-1.40); GLUCOSE 92 mg/dl (70-99); SODIUM 136 mmol/L (136-145)
[2017-02-16 16:18] LABS: PROTHROMBIN TIME (PATIENT) 11.1 SECONDS (9.0-12.0)
[2017-02-16] MEDS ORDERED: ASPIRIN 81 MG CHEW PO STA (16:21)
[2017-02-16 16:39] LABS: MAGNESIUM 2.2 mg/dl (1.8-2.4); POTASSIUM 4.8 mmol/L (3.5-5.1)
[2017-02-16 17:09] LABS: URINE APPEARANCE CLEAR (CLEAR); URINE BILIRUBIN NEG (NEG); URINE COLOR YELLOW; URINE EPITHELIAL CELL AUTO 0-5 /lpf (0-5); URINE NITRITE NEG (NEG); URINE PH 5.5 (4.5-7.5); URINE SPECIFIC GRAVITY 1.013 (1.000-1.030); UROBILINOGEN NEG (NEG)
[2017-02-16 17:10] LABS: MANUAL MICROSCOPIC REQUIRED? NO; REVIEW REQ? NO
[2017-02-16] MEDS ORDERED: ACETAMINOPHEN 325 MG TAB PO PRN (18:15)
[2017-02-16] MEDS ORDERED: MAGNESIUM HYDROXIDE SUSP 30 ML UDC PO PRN (18:15)
[2017-02-16] MEDS ORDERED: ONDANSETRON INJ 2 MG/ML 2 ML VIAL IV PRN (18:15)
[2017-02-16] MEDS ORDERED: ALUMINUM/MAGNESIUM/SIMETH (MAALOX MAX) 30 ML UDC PO PRN (18:15)
[2017-02-16] MEDS ORDERED: HYDROCODONE/ACETAMOPHEN 5/325MG TAB PO PRN (18:15)
[2017-02-16] MEDS ORDERED: LORAZEPAM INJ 1 MG in SYRINGE 0.5 ML IV PRN (18:30)
[2017-02-16] MEDS: SODIUM CHLORIDE 0.9% 1000ML 1,000 ML IV SCH (18:36)
[2017-02-16 19:49] VITALS: BP 164/102; PULSE 61; TEMP 36.7; Ht 190.5 cm; Wt 114.3 kg
[2017-02-16 19:52] VITALS: O2SAT 98
[2017-02-16 20:00] VITALS: O2SAT 94
[2017-02-16] MEDS ORDERED: HydrALAZINE 10 MG TAB PO ONE (20:30)
--- NOTE | 2017-02-16 20:46 | History and Physical ---
History & Physical Date & Time of Service: Feb 16, 2017 at 20:19 Chief Complaint: Stroke-Like Symptoms Primary Care Physician: No Doctor, Assigned History of Present Illness Source: patient, clinic records, hospital records This is a 61 year old male with a PMH of anxiety/depression, hx. of conversion disorder as per records, seizure disorder, hypothyroidism, HTN, hx. of DVT, PFO s/p repair, hx. of CVA and recurrent TIAs - presents after having presyncope/ weak/lethargy/chills at the [employer] football game. 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 He developed chills and became weak and almost passed out. He was seen by others there; no witnessed seizure or passing out. Patient recalls entire event and recalls being brought to the ER. Currently in the ED, denies any symptoms besides being cold. No other focal deficits; chronically weak on the R side due to previous CVA. Is c/o R LE pain/cramping and swelling. Denies chest pain/shortness of breath, denies headache/blurry vision. Past Medical/Surgical History Medical Problems: (1) Anxiety Status: Chronic (2) Benign neoplasm of colon Status: Chronic (3) Chronic back pain Status: Chronic (4) Conversion disorder Status: Chronic (5) Depression Status: Chronic (6) DVT (deep venous thrombosis) Permanent Comment: [id number]- IVC filter placed, hypercoag workup done; new DVT RLE 01/2014 non provoked; Coumadin stopped by [facility] [place] 09/[place] Status: Chronic (7) Enlarged thoracic aorta Permanent Comment: 4.[address] chest 10/2014 [place] [facility] [place] Status: Chronic (8) Fatty liver Status: Chronic (9) GERD (gastroesophageal reflux disease) Status: Chronic (10) H/O ischemic left MCA stroke Permanent Comment: 06/2007 with residual right hemiparesis Status: Chronic (11) HTN (hypertension) Status: Chronic (12) Hypothyroidism Status: Chronic (13) Impaired fasting glucose Status: Chronic (14) Migraine Status: Chronic (15) PFO (patent foramen ovale) Status: Chronic (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 (17) Seizure disorder Permanent Comment: neg prolonged EEG/ video monitoring 11/2013 at [facility] [place] Status: Chronic (18) Spinal stenosis, lumbar Status: Chronic Surgical Problems: (1) History of lumbar surgery Status: Chronic (2) S/P cholecystectomy Status: Chronic (3) S/P hernia repair Status: Chronic (4) S/P IVC filter Status: Chronic (5) S/P patent foramen ovale closure Permanent Comment: 01/2008 [facility] [place] Status: Chronic Family History FH: colon cancer MOTHER Hypertension FATHER Social History Smoking Status: Never Smoker Drug Use: none Marital Status: Housing status: lives with significant other Occupational Status: disabled Immunizations History of Tetanus Vaccine?: Yes Allergies Coded Allergies: BEE STING (Unverified Allergy, Unknown, UNKNOWN, 08/28/16) Iodinated Diagnostic Agents (Verified Allergy, Unknown, HIVES, 02/16/17) INFO FROM [facility] [place] Lisinopril (Unverified Allergy, Unknown, UNKNOWN, 08/28/16) Morphine (Unverified Allergy, Unknown, SHORTNESS OF BREATH, 08/28/16) Nortriptyline (Unverified Allergy, Unknown, UNKNOWN, 08/28/16) Home Medications Scheduled Citalopram (Citalopram Hydrobromide), 30 MG PO DAILY Clonazepam (Klonopin), 0.5 MG PO HS Clopidogrel (Plavix), 75 MG PO DAILY Cyanocobalamin (Vitamin B-12), 1,000 MCG PO DAILY Divalproex Sodium (Depakote), 500 MG PO BID Levothyroxine Sodium (Levothyroxine Sodium), 25 MCG PO QAM Simvastatin (Zocor), 10 MG PO HS Thiamine Hcl (Vitamin B-1), 100 MG PO DAILY Trazodone Hcl (Trazodone), 100 MG PO HS Wheat Dextrin (Benefiber), 4 GM PO DAILY Scheduled PRN Hydrocodone/Acetaminophen 5MG/325MG ([place] 5MG/325MG), 1 TABLET PO Q6 PRN for Pain Review of Systems Constitutional: + weakness, No fever, No chills, No sweats Respiratory: No cough, No sputum, No wheezing, No shortness of breath, No dyspnea on exertion, No dyspnea at rest Cardiovascular: No chest pain, No edema, No palpitations Abdomen: No pain, No nausea, No vomiting, No diarrhea, No constipation, No GI bleeding Musculoskeletal: + muscle pain (R calf), + swelling, + calf pain, No joint pain Genitourinary - Male: No hematuria, No dysuria, No urinary frequency, No urinary urgency Neurologic: + weakness, + vertigo, + balance problems, No memory loss, No paralysis, No numbness/tingling Hematologic / Lymphatic: No abnormal bleeding/bruising Integumentary: No rash Allergic / Immunologic: No environmental allergies, No seasonal allergies Physical Exam Vital Signs Date Time Temp Pulse Resp B/P (MAP) Pulse Ox O2 Delivery O2 Flow Rate FiO2 02/16/17 19:52 98 Room Air 02/16/17 19:49 36.7 61 20 164/102 02/16/17 19:15 36.9 60 17 159/85 95 02/16/17 19:01 159/85 02/16/17 18:46 60 17 95 02/16/17 18:31 167/103 02/16/17 18:16 60 17 94 02/16/17 18:11 60 18 95 02/16/17 18:01 154/94 02/16/17 17:41 71 32 92 02/16/17 17:36 60 20 95 02/16/17 17:31 150/84 02/16/17 17:06 59 14 95 02/16/17 17:01 150/86 02/16/17 16:41 58 17 96 02/16/17 16:36 60 18 96 02/16/17 16:34 152/85 02/16/17 16:31 163/84 02/16/17 16:21 63 14 96 02/16/17 16:16 163/94 02/16/17 16:11 62 02/16/17 16:06 59 17 95 02/16/17 16:01 166/102 02/16/17 15:58 60 17 96 02/16/17 15:53 62 18 95 02/16/17 15:46 163/98 02/16/17 15:38 59 16 95 02/16/17 15:35 58 02/16/17 15:31 165/90 02/16/17 15:26 36.9 60 18 172/84 95 Room Air 02/16/17 15:25 172/84 02/16/17 15:23 75 17 02/16/17 14:55 36.5 65 18 154/89 97 Room Air 02/16/17 14:55 98 Room Air General Appearance: no apparent distress Head: normocephalic, atraumatic Eyes: normal inspection ENT: hearing grossly normal Neck: supple Respiratory/Chest: lungs clear, normal breath sounds, no respiratory distress, no accessory muscle use Cardiovascular: regular rate, rhythm, no edema, no murmur Abdomen/GI: normal bowel sounds, non tender, soft Extremities/Musculoskelatal: + pertinent finding (R calf, tender; swollen) Neurologic/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: 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, alert, normal mood/affect, oriented x 3, + motor weakness (R sided motor weakness, 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; 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) Skin: normal color Lymphatic: no adenopathy Diagnostics Laboratory Results Results Past 24 Hours Test 02/16/17 15:22 02/16/17 16:00 02/16/17 16:30 Range/Units White Blood Count 9.00 4.8-10.8 K/uL Red Blood Count 5.05 4.7-6.1 M/uL Hemoglobin 17.7 14.0-18.0 g/dL Hematocrit 49.3 42-52 % Mean Corpuscular Volume 97.6 80-100 fL Mean Corpuscular Hemoglobin 35.0 25-34 pg Mean Corpuscular Hemoglobin Concent 35.9 32-36 g/dl Platelet Count 162 130-400 K/uL Mean Platelet Volume 10.1 7.4-10.4 fL Neutrophils (%) (Auto) 65.6 % Lymphocytes (%) (Auto) 23.2 % Monocytes (%) (Auto) 9.6 % Eosinophils (%) (Auto) 0.8 % Basophils (%) (Auto) 0.2 % Neutrophils # (Auto) 5.91 1.4-6.5 K/uL Lymphocytes # (Auto) 2.09 1.2-3.4 K/uL Monocytes # (Auto) 0.86 0.11-0.59 K/uL Eosinophils # (Auto) 0.07 0-0.5 K/uL Basophils # (Auto) 0.02 0-0.2 K/uL RDW Standard Deviation 43.9 36.4-46.3 fL RDW Coefficient of Variation 12.4 11.5-14.5 % Immature Granulocyte % (Auto) 0.6 % Immature Granulocyte # (Auto) 0.05 0.00-0.02 K/uL Bedside Prothrombin Time INR 1.1 0.9-1.1 Sodium Level 136 136-145 mmol/L Potassium Level 4.8 3.5-5.1 mmol/L Chloride Level 102 98-107 mmol/L Carbon Dioxide Level 29 21-32 mmol/L Anion Gap 6.0 3-11 mmol/L Blood Urea Nitrogen 8 7-18 mg/dl Creatinine 0.98 0.60-1.40 mg/dl Est Creatinine Clear Calc Drug Dose 113.7 ml/min Estimated GFR () 97.4 Estimated GFR (Non- 84.1 BUN/Creatinine Ratio 7.8 10-20 Random Glucose 92 70-99 mg/dl Calcium Level 8.9 8.5-10.1 mg/dl Magnesium Level 2.2 1.8-2.4 mg/dl Total Creatine Kinase 117 39-308 U/L Creatine Kinase MB 1.2 0.5-3.6 ng/ml Creatine Kinase MB Ratio 0-3.0 Troponin I < 0.015 0-0.045 ng/ml Valproic Acid (Depakene) Level 84 50-100 mcg/ml Prothrombin Time 11.1 9.0-12.0 SECONDS Prothromb Time International Ratio 1.0 0.9-1.1 Activated Partial Thromboplast Time 25.7 21.0-31.0 SECONDS Partial Thromboplastin Ratio 1.0 Chemistry Specimen Hemolysis Urine Color YELLOW Urine Appearance CLEAR CLEAR Urine pH 5.5 4.5-7.5 Urine Specific [place] 1.013 1.000-1.030 Urine Protein NEG NEG Urine Glucose (UA) NEG NEG Urine Ketones TRACE NEG Urine Occult Blood 1+ NEG Urine Nitrite NEG NEG Urine Bilirubin NEG NEG Urine Urobilinogen NEG NEG Urine Leukocyte Esterase NEG NEG Urine WBC (Auto) 0 0-5 /hpf Urine RBC (Auto) 0-4 0-4 /hpf Urine Hyaline Casts (Auto) 0 0-5 /lpf Urine Epithelial Cells (Auto) 0-5 0-5 /lpf Urine Bacteria (Auto) NEG NEG Diagnostic Radiology HEAD WITHOUT CONTRAST (CT) CLINICAL HISTORY: 61 years-old Male presenting with Stroke, altered mental status, lethargic. TECHNIQUE: Multidetector CT imaging of the head was performed without the use of intravenous contrast. IV contrast: None. A dose lowering technique was used consistent with the principles of ALARA (as low as reasonably achievable). COMPARISON: 08/28/2016. CT DOSE (mGy.cm): The estimated cumulative dose is 614.27 mGy.cm. FINDINGS: [employer] topogram: Unremarkable. Proportional ventricular and sulcal prominence, likely age-related parenchymal volume loss. Chronic left middle cerebral artery territory infarct in the left frontotemporal region. No mass effect or midline shift. No hemorrhage or acute territorial infarct. No extra-axial fluid collection. Paranasal sinuses and mastoid air cells clear. Calvarium intact. IMPRESSION: 1. No acute intracranial pathology. 2. Chronic left middle cerebral artery territory infarct. CHEST ONE VIEW PORTABLE CLINICAL HISTORY: 61 years-old Male presenting with Stroke. TECHNIQUE: Portable upright AP view of the chest was obtained. COMPARISON: 08/28/2016. FINDINGS: Mild prominence and atherosclerosis of the thoracic aorta. Cardiac silhouette top normal in size. Lungs and pleural spaces clear. Osseous structures normal. Upper abdomen normal. IMPRESSION: 1. No acute cardiopulmonary disease. EKG Sinus rhythm with 1st degree A-V block Impression Assessment and Plan This is a 61 year old male with a PMH of anxiety/depression, hx. of conversion disorder as per records, seizure disorder, hypothyroidism, HTN, hx. of DVT, PFO s/p repair, hx. of CVA and recurrent TIAs - presents after having presyncope/ weak/lethargy/chills Stroke-Like Symptoms Hx. of CVA Head CT negative for acute process; chronic L MCA territory Infract no acute deficits, chronic R sided weakness will check a brain MRI was here in August 2016 for TIA like symptom and had a fulll w/up and was negative will continue Plavix, statin will check a R LE Doppler to r/o DVT get an updated echo Seizure Disorder continue Depakote Anxiety/Depression continue current medications Hypothyroidism continue Synthroid check TSH DVT ppx Lovenox FULL CODE Advanced Directives Existing Living Will: No Existing Power of Document Image Technician: Yes VTE Prophylaxis VTE Risk Assessment Done? Y/N: Yes Risk Level: Moderate
[2017-02-16] MEDS ORDERED: TRAZODONE HCL 100 MG TAB PO SCH (21:00)
[2017-02-16] MEDS ORDERED: CLONAZEPAM 0.5 MG TAB PO SCH (21:00)
[2017-02-16] MEDS ORDERED: ENOXAPARIN 40 MG/0.4 ML SYR SC SCH (21:00)
[2017-02-16] MEDS ORDERED: SIMVASTATIN 10 MG TAB PO SCH (21:00)
[2017-02-16] MEDS: DIVALPROEX SODIUM 500 MG DELAY RELEASE TAB PO SCH (21:37)
--- NOTE | 2017-02-16 21:38 | EMERGENCY ROOM VISIT NOTE ---
History Report prepared by Fernie: Ld Brower Under the Supervision of: Dr. Steven Barone D.O. First contact with patient: 14:46 Stated Complaint: LETHARGIC History of Present Illness The patient is a 61 year old male who presents to the Emergency Room with a seizure-like episode that occurred prior to arrival today around 45 minutes ago. 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 It was unsure if the patient was having a seizure. The patient states that he did not fall, and denies any new pain. He was noted to be answering questions appropriately, but has been slow to respond and a bit more confused than usual. Per the nursing staff, the patient has a history of a stroke, with persistent right-sided deficits from that. The patient has been noted to have worsened right leg and right arm weakness today, with difficulty moving them. The patient denies any chest pain, shortness of breath, or abdominal pain. Per the patient's , the patient was with another beryl, but this other beryl left to go to the bathroom, and when he got back, the patient was found in the seizure-like state. The patient's thinks that the patient' s symptoms were due to being cold outside. The patient has no diagnosed history of seizures, but has had episodes like this in the past where he gets "out of it ", perhaps twice per year. The patient is noted to normally know what day it is. He takes Plavix 75 mg daily, per the patient's . The patient denies any recent falls. He also denies any headaches or changes in vision. Source of History: patient, spouse/significant other Onset: Prior to arrival today around 45 mins ago Position: other (global - seizure-like episode) Quality: other (was shaking, somewhat unresponsive) Timing: other (episode) Associated Symptoms: + weakness (worsened right leg and right arm), No headache, No chest pain, No SOB, No abdominal pain Note: Associated symptoms: Denies any pain or changes in vision. Review of Systems See HPI for pertinent positives & negatives. A total of 10 systems reviewed and were otherwise negative. 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 (17) Seizure disorder (18) Spinal stenosis, lumbar (19) Stroke (20) Stroke-like symptoms Surgical Problems: (1) History of lumbar surgery (2) S/P cholecystectomy (3) S/P hernia repair (4) S/P IVC filter (5) S/P patent foramen ovale closure Family History FH: colon cancer MOTHER Hypertension FATHER Social History Smoking Status: Never Smoker Alcohol Use: occasionally Drug Use: none Marital Status: Housing Status: lives with family Occupation Status: disabled Current/Historical Medications Scheduled Citalopram (Citalopram Hydrobromide), 30 MG PO DAILY Clonazepam (Klonopin), 0.5 MG PO HS Clopidogrel (Plavix), 75 MG PO DAILY Cyanocobalamin (Vitamin B-12), 1,000 MCG PO DAILY Divalproex Sodium (Depakote), 500 MG PO BID Levothyroxine Sodium (Levothyroxine Sodium), 25 MCG PO QAM Simvastatin (Zocor), 10 MG PO HS Thiamine Hcl (Vitamin B-1), 100 MG PO DAILY Trazodone Hcl (Trazodone), 100 MG PO HS Wheat Dextrin (Benefiber), 4 GM PO DAILY Scheduled PRN Hydrocodone/Acetaminophen 5MG/325MG ([place] 5MG/325MG), 1 TABLET PO Q6 PRN for Pain Allergies Coded Allergies: BEE STING (Unverified Allergy, Unknown, UNKNOWN, 08/28/16) Iodinated Diagnostic Agents (Verified Allergy, Unknown, HIVES, 02/16/17) INFO FROM [facility] Lisinopril (Unverified Allergy, Unknown, UNKNOWN, 08/28/16) Morphine (Unverified Allergy, Unknown, SHORTNESS OF BREATH, 08/28/16) Nortriptyline (Unverified Allergy, Unknown, UNKNOWN, 08/28/16) Physical Exam Vital Signs Date Time Temp Pulse Resp B/P (MAP) Pulse Ox O2 Delivery O2 Flow Rate FiO2 02/16/17 18:16 60 17 94 02/16/17 18:11 60 18 95 02/16/17 18:01 154/94 02/16/17 17:41 71 32 92 02/16/17 17:36 60 20 95 02/16/17 17:31 150/84 02/16/17 17:06 59 14 95 02/16/17 17:01 150/86 02/16/17 16:41 58 17 96 02/16/17 16:36 60 18 96 02/16/17 16:34 152/85 02/16/17 16:31 163/84 02/16/17 16:21 63 14 96 02/16/17 16:16 163/94 02/16/17 16:11 62 02/16/17 16:06 59 17 95 02/16/17 16:01 166/102 02/16/17 15:58 60 17 96 02/16/17 15:53 62 18 95 02/16/17 15:46 163/98 02/16/17 15:38 59 16 95 02/16/17 15:35 58 02/16/17 15:31 165/90 02/16/17 15:26 36.9 60 18 172/84 95 Room Air 02/16/17 15:25 172/84 02/16/17 15:23 75 17 02/16/17 14:55 36.5 65 18 154/89 97 Room Air 02/16/17 14:55 98 Room Air Physical Exam GENERAL: Sitting up in bed, intermittently answering questions, no acute distress. EYE EXAM: normal conjunctiva. PERRL and EOM's grossly intact. OROPHARYNX: no exudate, no erythema, lips, buccal mucosa, and tongue normal and mucous membranes are moist NECK: supple, no nuchal rigidity, no adenopathy, non-tender LUNGS: Clear to auscultation. Normal chest wall mechanics HEART: no murmurs, S1 normal and S2 normal ABDOMEN: abdomen soft, non-tender, normo-active bowel sounds, no masses, no rebound or guarding. BACK: Back is symmetrical on inspection and there is no deformity, no midline tenderness, no CVA tenderness. SKIN: no rashes and no bruising UPPER EXTREMITIES: upper extremities are grossly normal. LOWER EXTREMITIES: No pitting edema. NEURO EXAM: Awake, alert, oriented to place but not year. Right upper extremity with contracture, minimal movement. Right lower extremity with minimal plantar and dorsal flexion. No weakness in left upper extremity or left lower extremities. Medical Decision & Procedures ER Provider Diagnostic Interpretation: Radiology results as stated below per my review and the radiologist's interpretation: HEAD WITHOUT CONTRAST (CT) CLINICAL HISTORY: 61 years-old Male presenting with Stroke, altered mental status, lethargic. TECHNIQUE: Multidetector CT imaging of the head was performed without the use of intravenous contrast. IV contrast: None. A dose lowering technique was used consistent with the principles of ALARA (as low as reasonably achievable). COMPARISON: 08/28/2016. CT DOSE (mGy.cm): The estimated cumulative dose is 614.27 mGy.cm. FINDINGS: Human Resources Temp topogram: Unremarkable. Proportional ventricular and sulcal prominence, likely age-related parenchymal volume loss. Chronic left middle cerebral artery territory infarct in the left frontotemporal region. No mass effect or midline shift. No hemorrhage or acute territorial infarct. No extra-axial fluid collection. Paranasal sinuses and mastoid air cells clear. Calvarium intact. IMPRESSION: 1. No acute intracranial pathology. 2. Chronic left middle cerebral artery territory infarct. Electronically signed by: Nikolai Weir M.D. 02/16/2017 3:15 PM Dictated Date/Time: 02/16/2017 3:13 PM CHEST ONE VIEW PORTABLE CLINICAL HISTORY: 61 years-old Male presenting with Stroke. TECHNIQUE: Portable upright AP view of the chest was obtained. COMPARISON: 08/28/2016. FINDINGS: Mild prominence and atherosclerosis of the thoracic aorta. Cardiac silhouette top normal in size. Lungs and pleural spaces clear. Osseous structures normal. Upper abdomen normal. IMPRESSION: 1. No acute cardiopulmonary disease. Electronically signed by: Nikolai Weir M.D. 02/16/2017 3:28 PM Dictated Date/Time: 02/16/2017 3:28 PM Laboratory Results 02/16/17 15:22 Red Blood Count 5.05, Mean Corpuscular Volume 97.6, Mean Corpuscular Hemoglobin 35.0, Mean Corpuscular Hemoglobin Concent 35.9, Mean Platelet Volume 10.1, Neutrophils (%) (Auto) 65.6, Lymphocytes (%) (Auto) 23.2, Monocytes (%) (Auto) 9.6, Eosinophils (%) (Auto) 0.8, Basophils (%) (Auto) 0.2, Neutrophils # (Auto) 5.91, Lymphocytes # (Auto) 2.09, Monocytes # (Auto) 0.86, Eosinophils # (Auto) 0.07, Basophils # (Auto) 0.02 02/16/17 15:22 02/16/17 16:00 Test 02/16/17 15:22 02/16/17 16:00 02/16/17 16:30 White Blood Count 9.00 K/uL (4.8-10.8) Red Blood Count 5.05 M/uL (4.7-6.1) Hemoglobin 17.7 g/dL (14.0-18.0) Hematocrit 49.3 % (42-52) Mean Corpuscular Volume 97.6 fL (80-100) Mean Corpuscular Hemoglobin 35.0 pg (25-34) Mean Corpuscular Hemoglobin Concent 35.9 g/dl (32-36) Platelet Count 162 K/uL (130-400) Mean Platelet Volume 10.1 fL (7.4-10.4) Neutrophils (%) (Auto) 65.6 % Lymphocytes (%) (Auto) 23.2 % Monocytes (%) (Auto) 9.6 % Eosinophils (%) (Auto) 0.8 % Basophils (%) (Auto) 0.2 % Neutrophils # (Auto) 5.91 K/uL (1.4-6.5) Lymphocytes # (Auto) 2.09 K/uL (1.2-3.4) Monocytes # (Auto) 0.86 K/uL (0.11-0.59) Eosinophils # (Auto) 0.07 K/uL (0-0.5) Basophils # (Auto) 0.02 K/uL (0-0.2) RDW Standard Deviation 43.9 fL (36.4-46.3) RDW Coefficient of Variation 12.4 % (11.5-14.5) Immature Granulocyte % (Auto) 0.6 % Immature Granulocyte # (Auto) 0.05 K/uL (0.00-0.02) Bedside Prothrombin Time INR 1.1 (0.9-1.1) Anion Gap 6.0 mmol/L (3-11) Est Creatinine Clear Calc Drug Dose 113.7 ml/min Estimated GFR () 97.4 Estimated GFR (Non- 84.1 BUN/Creatinine Ratio 7.8 (10-20) Calcium Level 8.9 mg/dl (8.5-10.1) Creatine Kinase MB 1.2 ng/ml (0.5-3.6) Creatine Kinase MB Ratio (0-3.0) Troponin I < 0.015 ng/ml (0-0.045) Valproic Acid (Depakene) Level 84 mcg/ml (50-100) Prothrombin Time 11.1 SECONDS (9.0-12.0) Prothromb Time International Ratio 1.0 (0.9-1.1) Activated Partial Thromboplast Time 25.7 SECONDS (21.0-31.0) Partial Thromboplastin Ratio 1.0 Magnesium Level 2.2 mg/dl (1.8-2.4) Total Creatine Kinase 117 U/L (39-308) Chemistry Specimen Hemolysis Urine Color YELLOW Urine Appearance CLEAR (CLEAR) Urine pH 5.5 (4.5-7.5) Urine Specific [place] 1.013 (1.000-1.030) Urine Protein NEG (NEG) Urine Glucose (UA) NEG (NEG) Urine Ketones TRACE (NEG) Urine Occult Blood 1+ (NEG) Urine Nitrite NEG (NEG) Urine Bilirubin NEG (NEG) Urine Urobilinogen NEG (NEG) Urine Leukocyte Esterase NEG (NEG) Urine WBC (Auto) 0 /hpf (0-5) Urine RBC (Auto) 0-4 /hpf (0-4) Urine Hyaline Casts (Auto) 0 /lpf (0-5) Urine Epithelial Cells (Auto) 0-5 /lpf (0-5) Urine Bacteria (Auto) NEG (NEG) Laboratory results per my review. Medications Administered Medications (Trade) Dose Ordered Sig/Liss Route Start Time Stop Time Status Last Admin Dose Admin Sodium Chloride 1,000 ml @ 50 mls/hr Q20H IV 02/16/17 14:58 02/16/17 18:33 DC 02/16/17 15:32 50 MLS/HR Aspirin (Aspirin Chew) 324 mg NOW STAT PO 02/16/17 16:21 02/16/17 16:22 DC 02/16/17 16:57 324 MG Sodium Chloride 1,000 ml @ 80 mls/hr [id number] IV 02/16/17 18:12 03/18/17 18:11 02/16/17 18:36 80 MLS/HR ECG Indication: weakness Rate (beats per minute): 60 Rhythm: sinus rhythm Findings: no ectopy, other (normal axis) ED Course ED COURSE: Vital signs were reviewed and showed hypertensive vitals. The patients medical record was reviewed The above diagnostic studies were performed and reviewed. ED treatments and interventions as stated above. 1447: The patient was evaluated in room B2. A complete history and physical examination was performed. 1458: Ordered NSS 1000 ml @ 50 mls/hr IV. 1512: I discussed the patient with Dr. Baron - [facility]. 1523: I had the secretaries re-page Dr. Baron. 1621: Ordered Aspirin Chew 324 mg PO. 1634: I discussed the patient with Dr. Baron - he recommends admission/ observation and MRI. 1640: Upon reevaluation, the patient is resting.I discussed my findings with the patient and his family and they understand and agree with the treatment plan. Based on the patients age, coexisting illnesses, exam and lab findings the decision to treat as an inpatient was made. The patient remained stable while under my care. The patient will be evaluated for further management. 1656: I reviewed the patient's case with Dr. Francesco Cee bank worker. He will evaluate the patient for further management. 1711: I reevaluated the patient and he can now move his right leg. Medical Decision Differential Diagnosis includes but is not limited to ischemic Stroke, hemorrhagic stroke, bells palsy, mass, neoplasm, migraine headache, seizure, subarachnoid hemorrhage, TIA, and transient global amnesia. Patient is a 61-year-old male who presents to ER from the [facility] for possible stroke. Patient was working and was found shaking in his wheelchair. He was minimally responsive. Upon presentation to ER is alert but not answering QUESTIONS appropriately. He does have a right-sided deficit in the upper extremity and is unable to move the right lower extremity. Eventually presented notes that this isn't new. She does state this occurs maybe twice a year. I did call stroke alert. CT was obtained and was unremarkable. Patient was evaluated by neurology from [place]. We both question if this is truly a seizure versus TIA. He did return to baseline. CBC and BMP was unremarkable. Troponin was negative. UA was negative. Patient was given aspirin and fluids admits internal medicine for further workup. Medication Reconcilliation Current Medication List: was personally reviewed by me Blood Pressure Screening Patient's blood pressure: Elevated blood pressure Consults Time Called: 1510 Consulting Physician: Dr. Baron - [facility] Returned Call: 1512 I discussed the patient with Dr. Loraine Castillo [facility]. Additional Consults: Time Called: 1630 Consulted Physician: Dr. Baron Returned Call: 1634 Additional Comments: I discussed the patient with Dr. Baron - he recommends admission/observation and MRI. Time Called: 1650 Consulted Physician: Dr. Francesco Cee bank worker Returned Call: 1656 Additional Comments: I reviewed the patient's case with Dr. Francesco Cee bank worker. He will evaluate the patient for further management. Impression Primary Impression: Confusion Additional Impression: TIA (transient ischemic attack) Scribe Attestation The scribe's documentation has been prepared under my direction and personally reviewed by me in its entirety. I confirm that the note above accurately reflects all work, treatment, procedures, and medical decision making performed by me. Departure Information Dispostion Being Evaluated By Hospitalist Referrals No Doctor, Assigned (PCP) Stroke History Time Last Known Well 1 hour ago Stroke t-PA Criteria Reviewed Does NOT meet criteria for t-PA Reason t-PA Not Given Treatment not indicated (due to symptoms) Problem Qualifiers Additional Impression: TIA (transient ischemic attack) Transient cerebral ischemia type: unspecified Qualified Codes: G45.9 - Transient cerebral ischemic attack, unspecified
[2017-02-16 23:36] VITALS: BP 115/70; PULSE 73; TEMP 37; O2SAT 94
[2017-02-17] VITALS (7 sets, daily range): BP systolic 128–155; BP diastolic 72–82; PULSE 62–73; TEMP 36.5–36.8; O2SAT 92–95
[2017-02-17] MEDS ORDERED: LEVOTHYROXINE 25 MCG TAB PO SCH (06:00)
--- NOTE | 2017-02-17 06:05 | DIAGNOSTIC IMAGING REPORT ---
R VENOUS DOPP LOWER EXT UNILAT HISTORY: 61 years-old Male Right LE swelling acute right lower extremity pain and swelling COMPARISON: None available TECHNIQUE: Multiple real-time sonographic images of the right lower extremity deep venous structures were obtained assessing grayscale appearance, color and spectral flow FINDINGS: There is normal flow, compressibility, phasicity and augmentation of the right lower extremity deep venous structures. IMPRESSION: No sonographic evidence of deep venous thrombosis. The above report was generated using voice recognition software. It may contain grammatical, syntax or spelling errors. Electronically signed by: Pradeep Suazo M.D. 02/17/2017 6:04 AM Dictated Date/Time: 02/17/2017 6:03 AM
[2017-02-17 07:13] LABS: HEMATOCRIT 44.1 % (42-52); MEAN CELL VOLUME 98.2 fL (80-100); MEAN CORPUSCULAR HEMOGLOBIN 34.5 pg (25-34); MEAN CORPUSCULAR HGB CONC 35.1 g/dl (32-36); PLATELET COUNT 147 K/uL (130-400); RED BLOOD COUNT 4.49 M/uL (4.7-6.1); WHITE BLOOD COUNT 6.74 K/uL (4.8-10.8)
[2017-02-17] MEDS: SODIUM CHLORIDE 0.9% 1000ML 1,000 ML IV SCH (07:41)
[2017-02-17] MEDS: DIVALPROEX SODIUM 500 MG DELAY RELEASE TAB PO SCH (07:43)
[2017-02-17 07:48] LABS: CALCIUM 8.2 mg/dl (8.5-10.1); CREATININE 0.86 mg/dl (0.60-1.40)
[2017-02-17 07:58] LABS: THYROID STIMULATING HORMONE 4.01 uIu/ml (0.300-4.500)
[2017-02-17] MEDS ORDERED: CLOPIDOGREL BISULFATE 75 MG TAB PO SCH (09:00)
[2017-02-17] MEDS ORDERED: THIAMINE HCL 100 MG TAB PO SCH (09:00)
[2017-02-17] MEDS ORDERED: CITALOPRAM 20 MG TAB PO SCH (09:00)
[2017-02-17] MEDS ORDERED: CYANOCOBALAMIN 500 MCG TAB (VIT B-12) PO SCH (09:00)
--- NOTE | 2017-02-17 09:21 | ECHOCARDIOGRAM REPORT ---
*NOTICE TO RECEIVING [employer] This information is strictly Confidential and protected under [place] law. [place] law prohibits you from making any further disclosure of this information unless further disclosure is expressly permitted by the written consent of the person to whom it pertains or is authorized by law. A general authorization for the release of medical or other information is not sufficient for this purpose. Hospital accepts no responsibility if the information is made available to any other person, INCLUDING THE PATIENT. Interpretation Summary * Name: JUAN MANUEL PHILLIPS Study Date: 02/17/2017 06:17 AM BP: 128/82 mmHg * Patient Location: S240 HR: 62 * : 1955 (M/d/yyyy) Gender: Male Height: 75 in * Age: 61 yrs Ethnicity: CA Weight: 266 lb * Ordering Physician: Derrick Maya * Referring Physician: Self, Referred * Performed By: Bev Zamora RCS * * Reason For Study: SYNCOPE * BSA: 2.5 m2 * -- Conclusions -- * No significant change compared to previous study of 08/29/16. * Normal LV chamber size with mild concentric LVH. * Normal LV systolic function, EF 60-65%. * No segmental left ventricular wall motion abnormalities are noted. * Grade II diastolic dysfunction. * No significant valvular pathology. * Moderate aortic root dilatation. Would consider CT of chest to further evaluate aortic diameter. Procedure Details * A complete two-dimensional transthoracic echocardiogram was performed (2D, M-mode, Doppler and color flow Doppler). * The study was technically difficult. * A contrast injection of Definity was performed to improve assessment of LV function. * Contrast was injected into an intravenous site in the left arm. * One vial of Definity ultrasound contrast was diluted in normal saline to a total volume of 10 ml. A total of '2' ml of solution was administered during imaging. * Lot # [id number] of Definity utilized for procedure. * Expiration date MAR 25. * The attending nurse who injected the contrast agent was NITESH BERRY, RN. Left Ventricle * The left ventricle is normal in size. * There is mild concentric left ventricular hypertrophy. * Left ventricular systolic function is normal. * No segmental left ventricular wall motion abnormalities are noted. * Ejection Fraction = 60-65%. * The left ventricular wall motion is normal. Right Ventricle * The right ventricular cavity size is normal (basal dimension <4.2 cm in right ventricular apical 4-chamber view). * The right ventricular systolic function is normal as assessed by tricuspid annular plane systolic excursion (TAPSE) (normal >1.5 cm). Atria * The left atrial size is normal. * Right atrial size is normal. * No ASD detected; PFO is not assessed. Mitral Valve * The mitral valve is normal in structure and function. Tricuspid Valve * The tricuspid valve is normal in structure and function. Aortic Valve * The aortic valve is not well visualized. * No hemodynamically significant valvular aortic stenosis. * There is no significant aortic regurgitation. Pulmonic Valve * The pulmonary valve is not well seen, but the Doppler examination is normal without significant regurgitation or stenosis. Great Vessels * Moderate aortic root dilatation. * Previous study reviewed, aortic root diameter unchanged. MMode 2D Measurements and Calculations IVSd 1.4 cm IVSs 1.5 cm LVIDd 5.0 cm LVIDs 3.8 cm LVPWd 1.3 cm LVPWs 1.2 cm IVS/LVPW 1.1 FS 24.8 % EDV(Teich) 120.4 ml ESV(Teich) 61.5 ml EF(Teich) 48.9 % EDV(cubed) 127.9 ml ESV(cubed) 54.4 ml EF(cubed) 57.5 % % IVS thick 6.7 % % LVPW thick -5.96 % LV mass(C)d 280.8 grams LV mass(C)dI 113.4 grams/m\S\2 LV mass(C)s 185.0 grams LV mass(C)sI 74.7 grams/m\S\2 SV(Teich) 58.8 ml SI(Teich) 23.8 ml/m\S\2 SV(cubed) 73.5 ml SI(cubed) 29.7 ml/m\S\2 Ao root diam 4.6 cm Ao root area 16.8 cm\S\2 ACS 2.4 cm LA dimension 3.0 cm LA/Ao 0.64 LVOT diam 2.0 cm LVOT area 3.1 cm\S\2 LVAd ap4 39.0 cm\S\2 LVLd ap4 9.1 cm EDV(MOD-sp4) 138.6 ml EDV(sp4-el) 141.9 ml LVAs ap4 22.9 cm\S\2 LVLs ap4 7.0 cm ESV(MOD-sp4) 64.3 ml ESV(sp4-el) 64.0 ml EF(MOD-sp4) 53.6 % EF(sp4-el) 54.9 % LVAd ap2 30.9 cm\S\2 LVLd ap2 7.9 cm EDV(MOD-sp2) 104.2 ml EDV(sp2-el) 101.9 ml LVAs ap2 21.2 cm\S\2 LVLs ap2 7.2 cm ESV(MOD-sp2) 54.3 ml ESV(sp2-el) 53.0 ml EF(MOD-sp2) 47.9 % EF(sp2-el) 47.9 % LVLd %diff -14.47 % EDV(MOD-bp) 128.1 ml LVLs %diff 2.8 % ESV(MOD-bp) 58.4 ml EF(MOD-bp) 54.4 % SV(MOD-sp4) 74.3 ml SI(MOD-sp4) 30.0 ml/m\S\2 SV(MOD-sp2) 49.9 ml SI(MOD-sp2) 20.1 ml/m\S\2 SV(MOD-bp) 69.7 ml SI(MOD-bp) 28.1 ml/m\S\2 SV(sp4-el) 77.8 ml SI(sp4-el) 31.4 ml/m\S\2 SV(sp2-el) 48.9 ml SI(sp2-el) 19.7 ml/m\S\2 Doppler Measurements and Calculations MV E max tremaine 70.7 cm/sec MV A max tremaine 54.9 cm/sec MV E/A 1.3 MV P1/2t max tremaine 84.6 cm/sec MV P1/2t 54.0 msec MVA(P1/2t) 4.1 cm\S\2 MV dec slope 458.7 cm/sec\S\2 MV dec time 0.26 sec Ao V2 max 106.1 cm/sec Ao max PG 4.5 mmHg Ao max PG (full) 0.45 mmHg JULIEN(V,A) 2.9 cm\S\2 JULIEN(V,D) 2.9 cm\S\2 LV V1 max PG 4.1 mmHg LV V1 max 100.6 cm/sec PA V2 max 83.7 cm/sec PA max PG 2.8 mmHg PI max tremaine 151.8 cm/sec PI max PG 9.2 mmHg PI dec slope 151.8 cm/sec\S\2 PI P1/2t 292.9 msec
[2017-02-17] MEDS ORDERED: LORAZEPAM 2 MG/ML 1 ML VIAL ONE (12:07)
[2017-02-17] MEDS ORDERED: NURSING VERBAL MED ORDER ONE (12:45)
--- NOTE | 2017-02-17 13:46 | DIAGNOSTIC IMAGING REPORT ---
BRAIN WITHOUT CONTRAST HISTORY: 61 years-old Male r/o cva acute strokelike symptoms. Acute right-sided weakness COMPARISON: CT of the head 02/16/2017, MRI brain 08/29/2016 TECHNIQUE: Multiplanar multisequence MRI the brain was obtained without contrast. FINDINGS: There is no restricted diffusion to suggest acute ischemia. The midline structures including the corpus callosum, brainstem, optic chiasm, infundibulum, and pineal gland are unremarkable. Sella is partially empty. Mild degenerative changes of the imaged upper cervical spine. There is no acute intracranial hemorrhage, midline shift or abnormal extra-axial collections. No intracranial mass identified. Encephalomalacia with surrounding gliosis is again seen within the left frontal, parietal and temporal lobes from a remote left MCA infarction. Asymmetric ex vacuo changes involve the left lateral ventricle. There is mild to moderate background cerebral atrophy. The major flow voids at the level of the skull base are patent. Orbits are symmetric. Mastoid air cells are clear. No significant paranasal sinus disease. Scalp and soft tissues are unremarkable. IMPRESSION: 1. No acute intracranial abnormality. No acute ischemia or hemorrhage. 2. Atrophy with encephalomalacia and gliosis related to remote left MCA distribution infarction The above report was generated using voice recognition software. It may contain grammatical, syntax or spelling errors. Electronically signed by: Pradeep Suazo M.D. 02/17/2017 1:45 PM Dictated Date/Time: 02/17/2017 1:40 PM
--- NOTE | 2017-02-17 15:47 | Discharge Instructions ---
Discharge Instructions Date of Service Feb 17, 2017. Admission Reason for Admission: Stroke-Like Symptoms Discharge Discharge Diagnosis / Problem: presyncope Discharge Goals Goal(s): Decrease discomfort Activity Recommendations Activity Limitations: resume your previous activity . Instructions / Follow-Up Instructions / Follow-Up FOLLOWUP WITH FAMILY DOCTOR IN ONE WEEK FOLLOWUP WITH NEUROLOGY 1-2 WEEKS FOLLOWUP WITH FAMILY DOCTOR FOR DILATED AORTIC ROOT WITH CT SCAN. Current Hospital Diet Patient's current hospital diet: AHA Diet (Heart Healthy) Discharge Diet Recommended Diet: AHA Diet (Heart Healthy) Pending Studies Studies pending at discharge: no Medical Emergencies . Who to Call and When: Medical Emergencies: If at any time you feel your situation is an emergency, please call 911 immediately. . Non-Emergent Contact Non-Emergency issues call your: Primary Care Provider . . "Provider Documentation" section prepared by Figueroa Sloan. . VTE Core Measure Inpt VTE Proph given/why not?: Enoxaparin (Lovenox)SQ
--- NOTE | 2017-02-17 16:24 | Progress Note ---
Internal Med Progress Note Date of Service: Feb 17, 2017. Provider Documentation: SUBJECTIVE: resting comfortably afebrile has chronic right sided weakness speech fine no swallowing issues no chest pain or sob wants to go home OBJECTIVE: Vital Signs-as noted below Exam: General-alert and oriented. Not in distress ENT-normal hearing Neck-no neck masses Lungs- cta b/l no wheezing or crackles Heart-s1 and s2 heard regular rate and rhythm no murmurs Abdomen-soft bowel sounds present no tenderness present no distension Extremities-no edema no erythema Neuro-alert and oriented right sided weakness Lab data as noted below. ASSESSMENT & PLAN: This is a 61 year old male with a PMH of anxiety/depression, hx. of conversion disorder as per records, seizure disorder, hypothyroidism, HTN, hx. of DVT, PFO s/p repair, hx. of CVA and recurrent TIAs - presents after having presyncope/ weak/lethargy/chills Stroke-Like Symptoms Hx. of CVA Presyncope Head CT negative for acute process; chronic L MCA territory Infract no acute deficits, chronic R sided weakness was here in August 2016 for TIA like symptom and had a fulll w/up and was negative will continue Plavix, statin no DVT echo unremarkable except for grade 2 diastolic dysfunction and Moderate aortic root dilatation. Would consider CT of chest to further evaluate aortic diameter MRI no acute findings seen by neurology to d/c home to f/u with pcp and neurology Seizure Disorder continue Depakote Anxiety/Depression continue current medications Hypothyroidism continue Synthroid normal TSH discharge home Vital Signs: Date Time Temp Pulse Resp B/P (MAP) Pulse Ox O2 Delivery O2 Flow Rate FiO2 02/17/17 15:50 36.7 73 22 92 Nasal Cannula 02/17/17 12:04 36.7 73 22 155/72 (99) 92 Nasal Cannula 02/17/17 12:00 95 Room Air 02/17/17 08:00 95 Room Air 02/17/17 07:43 36.8 62 22 154/79 (104) Room Air 02/17/17 04:00 Room Air 02/17/17 03:45 36.5 62 18 128/82 (97) 95 Room Air 02/16/17 23:59 Room Air 02/16/17 23:36 37.0 73 16 115/70 (85) 94 Room Air 02/16/17 20:00 94 Room Air 02/16/17 19:52 98 Room Air 02/16/17 19:49 36.7 61 20 164/102 02/16/17 19:15 36.9 60 17 159/85 95 02/16/17 19:01 159/85 02/16/17 18:46 60 17 95 02/16/17 18:31 167/103 02/16/17 18:16 60 17 94 02/16/17 18:11 60 18 95 02/16/17 18:01 154/94 02/16/17 17:41 71 32 92 02/16/17 17:36 60 20 95 02/16/17 17:31 150/84 02/16/17 17:06 59 14 95 02/16/17 17:01 150/86 02/16/17 16:41 58 17 96 02/16/17 16:36 60 18 96 02/16/17 16:34 152/85 02/16/17 16:31 163/84 02/16/17 16:21 63 14 96 02/16/17 16:16 163/94 Lab Results: Results Past 24 Hours Test 02/16/17 16:30 02/17/17 06:58 Range/Units Urine Color YELLOW Urine Appearance CLEAR CLEAR Urine pH 5.5 4.5-7.5 Urine Specific [place] 1.013 1.000-1.030 Urine Protein NEG NEG Urine Glucose (UA) NEG NEG Urine Ketones TRACE NEG Urine Occult Blood 1+ NEG Urine Nitrite NEG NEG Urine Bilirubin NEG NEG Urine Urobilinogen NEG NEG Urine Leukocyte Esterase NEG NEG Urine WBC (Auto) 0 0-5 /hpf Urine RBC (Auto) 0-4 0-4 /hpf Urine Hyaline Casts (Auto) 0 0-5 /lpf Urine Epithelial Cells (Auto) 0-5 0-5 /lpf Urine Bacteria (Auto) NEG NEG White Blood Count 6.74 4.8-10.8 K/uL Red Blood Count 4.49 4.7-6.1 M/uL Hemoglobin 15.5 14.0-18.0 g/dL Hematocrit 44.1 42-52 % Mean Corpuscular Volume 98.2 80-100 fL Mean Corpuscular Hemoglobin 34.5 25-34 pg Mean Corpuscular Hemoglobin Concent 35.1 32-36 g/dl RDW Standard Deviation 43.9 36.4-46.3 fL RDW Coefficient of Variation 12.3 11.5-14.5 % Platelet Count 147 130-400 K/uL Mean Platelet Volume 10.0 7.4-10.4 fL Sodium Level 140 136-145 mmol/L Potassium Level 4.0 3.5-5.1 mmol/L Chloride Level 107 98-107 mmol/L Carbon Dioxide Level 27 21-32 mmol/L Anion Gap 6.0 3-11 mmol/L Blood Urea Nitrogen 10 7-18 mg/dl Creatinine 0.86 0.60-1.40 mg/dl Est Creatinine Clear Calc Drug Dose 126.1 ml/min Estimated GFR () 110.0 Estimated GFR (Non- 94.9 BUN/Creatinine Ratio 11.0 10-20 Random Glucose 96 70-99 mg/dl Calcium Level 8.2 8.5-10.1 mg/dl Thyroid Stimulating Hormone (TSH) 4.010 0.300-4.500 uIu/ml
--- NOTE | 2017-02-17 18:11 | Discharge Summary ---
Discharge Summary Date of Service Feb 17, 2017. Discharge Summary Admission Date: Feb 16, 2017 at 18:20 Discharge Date: Feb 17, 2017 Discharge Disposition: Home Principal Diagnosis: STROKE LIKE SYMPTOMS PRE SYNCOPE Secondary Diagnoses/Problems: (1) Anxiety Status: Chronic (2) Benign neoplasm of colon Status: Chronic (3) Chronic back pain Status: Chronic (4) Conversion disorder Status: Chronic (5) Depression Status: Chronic (6) DVT (deep venous thrombosis) Permanent Comment: RLE 2007- IVC filter placed, hypercoag workup done; new DVT RLE 01/2014 non provoked; Coumadin stopped by [facility] neuro 09/2015 Status: Chronic (7) Enlarged thoracic aorta Permanent Comment: 4.[address] chest 10/2014 at [facility] Status: Chronic (8) Fatty liver Status: Chronic (9) GERD (gastroesophageal reflux disease) Status: Chronic (10) H/O ischemic left MCA stroke Permanent Comment: 06/2007 with residual right hemiparesis Status: Chronic (11) HTN (hypertension) Status: Chronic (12) Hypothyroidism Status: Chronic (13) Impaired fasting glucose Status: Chronic (14) Migraine Status: Chronic (15) PFO (patent foramen ovale) Status: Chronic (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 (17) Seizure disorder Permanent Comment: neg prolonged EEG/ video monitoring 11/2013 at [facility] Status: Chronic (18) Spinal stenosis, lumbar Status: Chronic Procedures: CT HEAD: 1. No acute intracranial pathology. 2. Chronic left middle cerebral artery territory infarct. CXR: 1. No acute cardiopulmonary disease. RIGHT LOWER EXTREMITY DOPPLER: No sonographic evidence of deep venous thrombosis. MRI BRAIN: 1. No acute intracranial abnormality. No acute ischemia or hemorrhage. 2. Atrophy with encephalomalacia and gliosis related to remote left MCA distribution infarction ECHO:No significant change compared to previous study of 08/29/16. * Normal LV chamber size with mild concentric LVH. * Normal LV systolic function, EF 60-65%. * No segmental left ventricular wall motion abnormalities are noted. * Grade II diastolic dysfunction. * No significant valvular pathology. * Moderate aortic root dilatation. Would consider CT of chest to further evaluate aortic diameter. Consultations: NEUROLOGY Medication Reconciliation Continued Medications: Citalopram (Citalopram Hydrobromide) 20 Mg Tab 30 MG PO DAILY Clonazepam (Klonopin) 0.5 Mg Tab 0.5 MG PO HS, TAB Clopidogrel (Plavix) 75 Mg Tab 75 MG PO DAILY, TAB Cyanocobalamin (Vitamin B-12) 1,000 Mcg Tab 1000 MCG PO DAILY, TAB Divalproex Sodium (Depakote) 500 Mg Tab 500 MG PO BID, TAB 2 Refills Hydrocodone/Acetaminophen 5MG/325MG (Angelica 5MG/325MG) Tab 1 TABLET PO Q6 PRN for Pain, TAB PRN PAIN Levothyroxine Sodium (Levothyroxine Sodium) 25 Mcg Tab 25 MCG PO QAM for 90 Days, #90 TAB 3 Refills Simvastatin (Zocor) 10 Mg Tab 10 MG PO HS, TAB Thiamine Hcl (Vitamin B-1) 100 Mg Tab 100 MG PO DAILY, TAB Trazodone Hcl (Trazodone) 100 Mg Tab 100 MG PO HS, TAB Wheat Dextrin (Benefiber) 1 Tab Tab 4 GM PO DAILY Admission Information HPI (per Admitting provider): This is a 61 year old male with a PMH of anxiety/depression, hx. of conversion disorder as per records, seizure disorder, hypothyroidism, HTN, hx. of DVT, PFO s/p repair, hx. 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 He developed chills and became weak and almost passed out. He was seen by others there; no witnessed seizure or passing out. Patient recalls entire event and recalls being brought to the ER. Currently in the ED, denies any symptoms besides being cold. No other focal deficits; chronically weak on the R side due to previous CVA. Is c/o R LE pain/cramping and swelling. Denies chest pain/shortness of breath, denies headache/blurry vision. 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 of conversion disorder as per records, seizure disorder, hypothyroidism, HTN, hx. of DVT, PFO s/p repair, hx. of CVA and recurrent TIAs - presents after having presyncope/ weak/lethargy/chills Stroke-Like Symptoms Hx. of CVA Presyncope Head CT negative for acute process; chronic L MCA territory Infract no acute deficits, chronic R sided weakness was here in August 2016 for TIA like symptom and had a fulll w/up and was negative will continue Plavix, statin no DVT echo unremarkable except for grade 2 diastolic dysfunction and Moderate aortic root dilatation. Would consider CT of chest to further evaluate aortic diameter MRI no acute findings seen by neurology to d/c home to f/u with pcp and neurology Seizure Disorder continue Depakote Anxiety/Depression continue current medications Hypothyroidism continue Synthroid normal TSH discharge home Total time spent on discharge = 35MINUTES This includes examination of the patient, discharge planning, medication reconciliation, and communication with other providers. Discharge Instructions Discharge Instructions Date of Service Feb 17, 2017. Admission Reason for Admission: Stroke-Like Symptoms Discharge Discharge Diagnosis / Problem: presyncope Discharge Goals Goal(s): Decrease discomfort Activity Recommendations Activity Limitations: resume your previous activity . Instructions / Follow-Up Instructions / Follow-Up FOLLOWUP WITH FAMILY DOCTOR IN ONE WEEK FOLLOWUP WITH NEUROLOGY 1-2 WEEKS FOLLOWUP WITH FAMILY DOCTOR FOR DILATED AORTIC ROOT WITH CT SCAN. Current Hospital Diet Patient's current hospital diet: AHA Diet (Heart Healthy) Discharge Diet Recommended Diet: AHA Diet (Heart Healthy) Pending Studies Studies pending at discharge: no Medical Emergencies . Who to Call and When: Medical Emergencies: If at any time you feel your situation is an emergency, please call 911 immediately. . Non-Emergent Contact Non-Emergency issues call your: Primary Care Provider . . "Provider Documentation" section prepared by Figueroa Sloan. . VTE Core Measure Inpt VTE Proph given/why not?: Enoxaparin (Lovenox)SQ
--- NOTE | 2017-02-17 19:58 | CONSULTATION REPORT ---
DATE OF CONSULTATION: 02/17/2017 FOR: Figueroa Sloan MD Mr. Espinosa is 61 years old who resides in [facility] who at one point was seeing Dr. Lion there, but has not seen him for some time and needs to pick another primary care physician. He was followed by Dr. Brown at [place] in cerebrovascular disease department and has had a left middle cerebral artery CVA, felt to be secondary to a paradoxical embolism through a PFO and had repair of the PFO 9 years ago at [place] and has followed up ever since. He is on Plavix and has been on this for some time. There is a past history of anxiety, benign colonic neoplasms, chronic back pain, conversion disorder, although I am not sure how this was diagnosed, depression, DVT with an IVC filter placed, negative hypercoag workup, Coumadin was stopped back in 2016. He has an enlarged thoracic aorta, fatty liver, GERD, hypertension, stroke and PFO closure as described above. He is also felt to be hypothyroid, has impaired fasting glucose, and migraine headaches. There is a question of a seizure disorder-likely post cva-and is on depakote in low doses with a negative prolonged EEG and video monitoring study at [place] inthe past. He also has spinal stenosis, has had lumbar surgery, cholecystectomy, hernia repair, the PFO closure, and IVC filter. He and his often assist at [employer]. He is usually in a wheelchair because of his chronic right hemiparesis and yesterday, apparently became chilled, began to shiver, became lethargic and had a near syncopal episode. His did not see the event, but she heard in the way it was described, but no one described anything that looks like a focal motor seizure and she claims she has had similar episodes. He was brought into the Emergency Room, evaluated and admitted for assessment and is now on deck for an MRI to be certain he did not have another CVA. I am seeing him just prior to his departure for the MRI scan. According to his , he is back to his baseline, is always a little sleepy. He awakens frequently at night. There has never been a question of sleep apnea apparently. He has a chronic dysarthric speech, surprisingly a little aphasia, and a pretty dense right hemiparesis requiring use of a cane and a wheelchair when he is required to do protracted walking. MEDICATIONS: At home include Celexa, clonazepam, Plavix, vitamin B12, Depakote 500 mg twice a day despite the negative workup for seizure activity, levothyroxine, simvastatin, thiamine, trazodone. He takes as needed, hydrocodone/acetaminophen for back pain. ALLERGIES: TO BEE STINGS, IODINATED DIAGNOSTIC CONTRAST AGENTS, LISINOPRIL, MORPHINE AND NORTRIPTYLINE. SOCIAL HISTORY: Reveals him to be a never smoker. He is . He does not consume ethanol. FAMILY HISTORY: Positive for colon cancer in mother, hypertension in his father. REVIEW OF SYSTEMS: Reveals no recent illnesses, fevers, sweats, chills. No new issues referable to head, eyes, ears, nose and throat, cardiovascular, pulmonary, gastrointestinal, genitourinary, or musculoskeletal systems. Neurologically, he has a fixed hemiparesis. Apparently, quiescent seizure disorder with negative inpatient prolonged video EEG monitoring in the past, on Depakote, and the old PFO, CVA, complex described above for which he has been taking Plavix. PHYSICAL EXAMINATION: VITAL SIGNS: On examination last night in the ER, his blood pressure was 164/102, pulse was 61, respirations were 20 throughout the evening and the blood pressure fell, but still it was between 150 and 160 systolic and 84 and 102 diastolic. GENERAL: He was alert and slightly dysarthric, oriented in 3 spheres. He did not appear to be in any acute distress, but was a little lethargic. HEAD, EYES, EARS, NOSE AND THROAT: Exam was normal. LUNGS: Clear. HEART: Had a regular rhythm. EXTREMITIES: Free of edema. ABDOMEN: Soft and nontender. There was some question of some calf tenderness and some swelling on the right. NEUROLOGIC: Today, when I awakened him, he was briefly confused, but then was quite conversant and did have a slightly dysarthric speech pattern. I did not sweet pickle maker on any word finding deficits or neologisms or paraphrases that he was able to speak on the phone with the cardiac cath lab technologist who was filling up the questionnaire and required only minimal assistance from his . He had a right upper motor neuron facial paresis. There were no gross visual field cuts. Eye movements were normal. He had a modest right hemiparesis involving the arm and leg with an increased tone, hyperreflexia, increased toe sign and diminished facility and mild diminished strength distally consistent with an upper motor neuron pattern. There were no gross sensory deficits. Laboratory studies were unremarkable. Imaging studies have included a CAT scan showing an old left MCA infarct and an MRI is pending; certainly, he did not have another stroke, although clinically. The story really would be unusual for this. At this point, what I can glean from the history, I suspect his 's assessment is absolutely accurate i.e. simply got cold, had some shivering, became lethargic and had a near syncopal episode, perhaps due to some unstable blood pressure. I see nothing here that suggests a new cerebrovascular event, although it will be hard to say he did not have one. According to his , he is at his baseline. I hear nothing that suggests a seizure disorder and there is some question about whether he really had a significant seizure in the past with a negative monitoring study. Furthermore, his valproic acid level was quite normal at 84. At this point, unless we see something new on the MRI to suggest an infarction, I would let this man go home on his prior anticoagulation regimen and follow up with Dr. Brown at [place] later in February as he does have an appointment. He should follow up also with his primary care physician. Neurology will take a look at him tomorrow if indeed he has had an infarct, but frankly if the MRI scan is negative, I think he could be discharged today as long as his vital signs, etc. are stable and the assistive technology trainer feel comfortable with this. I will check back this afternoon on his imaging studies to see if he has had any documented new event. REYNA
== END 2017-02-17 16:42 | disposition home or self-care (01) | DRG 312 ==
LOC: EDBD 14:38 → C.EDB 14:40 → C.2T 18:20 → ENRESERV 18:53
PROVIDERS: ADMIT Family Medicine; ATTEND Internal Medicine
DX: R55 Syncope and collapse (principal); I69.951 Hemiplegia and hemiparesis following unspecified cerebrovascular disease affecting right dominant side; G40.909 Epilepsy, unspecified, not intractable, without status epilepticus; I10 Essential (primary) hypertension; K76.0 Fatty (change of) liver, not elsewhere classified; E03.9 Hypothyroidism, unspecified; Z86.73 Personal history of transient ischemic attack (TIA), and cerebral infarction without residual deficits; F41.8 Other specified anxiety disorders; K21.9 Gastro-esophageal reflux disease without esophagitis; M54.9 Dorsalgia, unspecified; Z95.828 Presence of other vascular implants and grafts; I72.4 Aneurysm of artery of lower extremity; Z87.74 Personal history of (corrected) congenital malformations of heart and circulatory system; Z86.718 Personal history of other venous thrombosis and embolism; M48.061 Spinal stenosis, lumbar region without neurogenic claudication